=== PATIENT | female | born 1960 | race Caucasian/White ===

== ENCOUNTER 2020-01-15 09:08 | Outpatient (CLI) | payer MEDICARE, SELFPAY ==
--- NOTE | 2020-01-15 09:16 | XR_ITS ---
WS: [id number] PROCEDURE: XR chest 2V* [id number] CLINICAL INFORMATION: BRONCHITIS ACUTE, ALLERGIC RHINITIS COMPARISON: 2017 FINDINGS: Heart: Normal cardiac silhouette. Lungs: Moderate chronic emphysematous changes. No acute pulmonary infiltrates. Bones: Moderate thoracic kyphosis. Chronic anterior wedging mid thoracic spine. XR/XR chest 2V* [id number] IMPRESSION: Moderate chronic emphysematous changes. No acute chest findings.
== END 2020-01-15 09:09 | disposition home or self-care (01) ==
LOC: RADWPI 09:12
PROVIDERS: Family Provider Electrodiagnostic Medicine; PCP Electrodiagnostic Medicine; Visit Provider Electrodiagnostic Medicine
DX: J20.9 Acute bronchitis, unspecified (principal); J30.9 Allergic rhinitis, unspecified
CPT/HCPCS: 71046

== ENCOUNTER → 2022-02-17 10:25 | Outpatient (BNVA) | payer MEDICARE, SELFPAY | PROVIDERS: PCP Clinical Nurse Specialist Adult Health; Visit Provider Clinical Nurse Specialist Adult Health | DX: E53.8 Deficiency of other specified B group vitamins (principal); R03.0 Elevated blood-pressure reading, without diagnosis of hypertension; E78.5 Hyperlipidemia, unspecified; E55.9 Vitamin D deficiency, unspecified; Z12.39 Encounter for other screening for malignant neoplasm of breast | CPT/HCPCS: 80053; 80061; 82306; 82607; 84443; 85025; 85651; 86140; 86431 ==

== ENCOUNTER 2022-03-07 09:37 | Outpatient (CLI) | payer MEDICARE, SELFPAY ==
--- NOTE | 2022-03-07 09:56 | MM_ITS ---
WS: [email or web address] VIEWS: MLO and CC views both breasts. 3D digital tomosynthesis is also included in this exam. Comparison made with prior exam of 09/13/2007 and 08/08/2013. Findings: New 6 mm nodule noted at about the 7:00 position in the right breast at posterior depth. No sap mobility architect ural distortion or suspicious calcification. No new findings in the left breast. Scattered fibroglan dular densities. Compression spot views of the right breast and 90 degree lateral view as well as reg ional ultrasound evaluation would be indicated for further workup. MM/[place] [id number] Impression: BI-RADS: 0-Incomplete: Need additional imaging evaluation FOLLOW-UP: See Report This mammogram was also analyzed by the Computer Aided Detection System R2 Imag e Cyber Forensic Specialist.
== END 2022-03-07 09:38 | disposition home or self-care (01) ==
LOC: RAD 09:37
PROVIDERS: PCP Clinical Nurse Specialist Adult Health; Visit Provider Clinical Nurse Specialist Adult Health
DX: Z12.31 Encounter for screening mammogram for malignant neoplasm of breast (principal)
CPT/HCPCS: 77063; 77067

== ENCOUNTER 2022-03-10 12:51 | Outpatient (CLI) | payer MEDICARE, SELFPAY ==
--- NOTE | 2022-03-10 13:02 | US_ITS ---
WS: [email or web address] Exam: US breast RT limited* [id number] Date/Time of Exam: 03/10/2022 1:44 PM Reason For Exam: ABNORMAL MAMMOGRAM Regional ultrasound of the right breast is performed. A hypoechoic lobulated solid nodule is noted at the 6:00 position and measures approximately 6 x 5.3 x 4.6 mm. There were no other discrete solid no dules or masses in this region. No cysts were seen. Recommendations: Biopsy. US/US breast RT limited* [id number] IMPRESSION: 1. 6 x 5.3 x 4.6 mm lobulated hypoechoic solid nodule at the 6:00 position in t he right breast. This likely represents the nodular density described on recent mammography. BI-RADS Category 4.
--- NOTE | 2022-03-10 13:02 | MM_ITS ---
WS: [email or web address] VIEWS: Compression spot CC and MLO views of the right breast were obtained as well as a 90 degree lat eral view of the right breast. 3D digital tomosynthesis is also included in this exam. Comparison made with prior exam of 03/07/2022. Findings: Previously noted 6 mm nodule at the 7:00 position in the right breast persists on the compression spo t images. Scattered fibroglandular densities in the right breast. Regional ultrasound of the right b reast is indicated for further workup. MM/[place] [id number] Impression: BI-RADS: 0-Incomplete: Need additional imaging evaluation FOLLOW-UP: See Report This mammogram was also analyzed by the Computer Aided Detection System R2 Imag e Ballast Cleaning Operator.
== END 2022-03-10 12:52 | disposition home or self-care (01) ==
PROVIDERS: PCP Clinical Nurse Specialist Adult Health; Visit Provider Clinical Nurse Specialist Adult Health
DX: R92.8 Other abnormal and inconclusive findings on diagnostic imaging of breast (principal)
CPT/HCPCS: 76642; 77061

== ENCOUNTER 2022-04-08 12:08 | Outpatient (CLI) | payer MEDICARE, SELFPAY ==
--- NOTE | 2022-04-08 12:17 | US_ITS ---
WS: [email or web address] ULTRASOUND-GUIDED RIGHT BREAST BIOPSY HISTORY: Indeterminate nodule by ultrasound and mammography. COMPARISON: 03/10/2022 and 03/07/2022 Procedure, risks and complications are explained to the patient. Medications are reviewed. Consent is obtained. The mass in the RIGHT breast is localized with ultrasound. Mass localizes to 6:00. Skin is cleansed w ith ChloraPrep and anesthetized with 1% buffered lidocaine. Small dermatome is made. Under sterile co nditions mass is biopsied with a 14-gauge Achieve needle. Multiple core biopsies are performed. Mater ial placed in formalin and sent to pathology for review. No complications encountered. Breast tissue marker (Bard ultrasound enhanced ribbon): Single. Patient left the radiology suite with no complications. Patient is instructed to return to [facility] or [facility] with any concerns. US/[place] [id number] IMPRESSION: 1. Uncomplicated core needle biopsy RIGHT breast mass at 6:00 PATHOLOGY: Ductal carcinoma in situ, papillary variant. RECOMMENDATION: Follow-up with surgery. Pathologist recommended surgical excisi on if this is a localized mass. There is a localized mass. Recommend wire local ization and excision.
[2022-04-15 13:29] LABS: Breast Profile ER,PR,HER2,Ki-6 See Report
== END 2022-04-08 12:09 | disposition home or self-care (01) ==
LOC: RAD 12:09
PROVIDERS: PCP Family Medicine; Visit Provider Family Medicine
DX: D05.11 Intraductal carcinoma in situ of right breast (principal); R92.8 Other abnormal and inconclusive findings on diagnostic imaging of breast
CPT/HCPCS: 19083; 88305; 88361; 88374

== ENCOUNTER 2022-05-05 07:24 | Day surgery (SDC) | payer MEDICARE, SELFPAY ==
[2022-05-04 14:35] VITALS: BMI 42.9
[2022-05-05] VITALS (8 sets, daily range): BP systolic 149–177; BP diastolic 88–124; PULSE 68–85; RESP 14–18; TEMP 36.1–36.6; O2SAT 97–99
--- NOTE | 2022-05-05 | US_ITS ---
WS: [email or web address] ULTRASOUND BREAST RIGHT NEEDLE LOCALIZATION CLINICAL INFORMATION: lumpetomy surgery FINDINGS: The procedure including risks, benefits, and complications were discussed with the patient who agreed to proceed. Using sterile technique patient was prepped and draped in the usual sterile fashion. Aft er 1% lidocaine utilizing real-time ultrasound guidance 7 cm Kopan's needle advanced through the RIGH T breast lesion at the 6 o'clock position. No immediate complications Surgical specimen demonstrates gross total resection with intact wire and biopsy clip. This is confir med with mammography and ultrasound. Follow-up with oncology and breast surgery as directed. US/US breast surgical specimen IMPRESSION: 1. Uncomplicated ultrasound-guided RIGHT breast needle localization. 2. Surgical specimen demonstrates gross total resection with intact wire and b iopsy clip. This is confirmed with mammography and ultrasound. 3. Recommend 6 month follow-up RIGHT breast diagnostic mammography and ultraso und. 4. Follow-up with oncology and breast surgery as directed. BI-RADS: 6-Known Biopsy-Proven Malignancy FOLLOW UP: 6 Month Follow-up
--- NOTE | 2022-05-05 07:43 | US_ITS ---
WS: [email or web address] ULTRASOUND BREAST RIGHT NEEDLE LOCALIZATION CLINICAL INFORMATION: lumpetomy surgery FINDINGS: The procedure including risks, benefits, and complications were discussed with the patient who agreed to proceed. Using sterile technique patient was prepped and draped in the usual sterile fashion. Aft er 1% lidocaine utilizing real-time ultrasound guidance 7 cm Kopan's needle advanced through the RIGH T breast lesion at the 6 o'clock position. No immediate complications Surgical specimen demonstrates gross total resection with intact wire and biopsy clip. This is confir med with mammography and ultrasound. Follow-up with oncology and breast surgery as directed. US/[place] [id number] IMPRESSION: 1. Uncomplicated ultrasound-guided RIGHT breast needle localization. 2. Surgical specimen demonstrates gross total resection with intact wire and b iopsy clip. This is confirmed with mammography and ultrasound. 3. Recommend 6 month follow-up RIGHT breast diagnostic mammography and ultraso und. 4. Follow-up with oncology and breast surgery as directed. BI-RADS: 6-Known Biopsy-Proven Malignancy FOLLOW UP: 6 Month Follow-up
[2022-05-05] MEDS: sodium chloride 0.9% 1,000 ML 30 ML IV (08:22)
--- NOTE | 2022-05-05 08:25 | PC.NURSE ---
patient taken to ultra sound at 0820 for needle localization.
--- NOTE | 2022-05-05 08:55 | PC.NURSE ---
patient back from [facility] dr[facility] ordonez to see patient.
--- NOTE | 2022-05-05 09:07 | ANES.PREANE2 ---
Pre-Anesthetic Assessment Height/Weight: Height 1.63 m Weight 113.398 kg Temp Pulse Resp BP Pulse Ox O2 Del Method 97.9 F 85 18 166/104 97 05/05/22 07:56 05/05/22 07:56 05/05/22 07:56 05/05/22 08:00 05/05/22 07:56 05/05/22 07:56 Operation Date: 05/05/22 09:40 Proposed Procedures p Right Breast Lumpectomy following needle [id number] US@0800(Right) - Felix Leggett MD Familial anesthetic complications: none Was Beta Corazon taken within 24 hours: N/A Was Clonidine taken within 24 hours: N/A Last intake: Intake Last Liquid Date 05/04/22 Last Liquid Time 23:00 Last Solid Date 05/04/22 Last Solid Time 18:00 Social No alcohol and No tobacco Exam alert, oriented x 3, clear to auscultation bilaterally and regular rate & rhythm Airway Submandibular: within normal limits Cervical ROM: within normal limits Mallampati: Class II Dentition: full CV/HEM Anemia Metabolic Morbid Obesity [facility] Rheumatoid Arthritis Anesthetic Plan ASA status: 2 Anesthesia: Choice Medications/Allergies Home Medications Medication Instructions Recorded Confirmed Last Taken Type albuterol sulfate 90 mcg/actuation 2 puff inhalation Q6H PRN 02/17/22 05/05/22 04/19/22 History aerosol inhaler shortness of breath or wheezing cholecalciferol (vitamin D3) 125 5,000 unit PO DAILY #30 caps 02/18/22 05/05/22 05/04/22 06:00 Rx mcg (5,000 unit) capsule Allergies Allergy/AdvReac Type Severity Reaction Status Date / Time ciprofloxacin [From Cipro] Allergy RASH Verified 05/05/22 07:49 Current Medications Generic Name Dose Route Start Last Admin Trade Name Freq PRN Reason Stop Dose Admin Sodium Chloride 1,000 mls @ 30 mls/hr 05/05/22 08:00 05/05/22 08:22 Sodium Chloride 0.9% IV 05/06/22 07:59 30 mls/hr .Q24H ELLEN Administration PFSH Anesthesia Medical History (Updated 04/16/22 @ 18:30 by Benson Figueroa MD) Elevated blood pressure reading without diagnosis of hypertension Generalized osteoarthritis Hx of compression fracture of spine Hyperlipidemia Morbid obesity Psoriasis Recurrent UTI (urinary tract infection) Rheumatoid arthritis Ulnar nerve abnormality Vitamin B12 deficiency Vitamin D deficiency disease Surgical History Hx of gastric bypass Hx of hysterectomy Family History Grandfather Cancer lung Father Cancer lung Social History Smoking and tobacco status: former smoker Alcohol intake: never Current occupational status: retired Data Anesthesia Cardiac Studies: No Data to Display
--- NOTE | 2022-05-05 09:09 | W.PM.OPSUD ---
Surgery/Procedure H&P Update DATE OF PROCEDURE: May 05, 2022 DATE H&P PERFORMED: 04/26/22 H&P UPDATE INFORMATION: No changes to prior documentation PREOP DIAGNOSIS: Right breast DCIS. PLANNED PROCEDURE: Operation Date: 05/05/22 09:40 Proposed Procedures p Right Breast Lumpectomy following needle [id number],D05.11 US@0800(Right) - Felix Leggett MD
[2022-05-05] MEDS: ceFAZolin 2,000 MG in sodium chloride 0.9% (plus) 50 ML 100 MG IV (10:30)
--- NOTE | 2022-05-05 11:08 | MM_ITS ---
WS: [email or web address] ULTRASOUND BREAST RIGHT NEEDLE LOCALIZATION CLINICAL INFORMATION: lumpetomy surgery FINDINGS: The procedure including risks, benefits, and complications were discussed with the patient who agreed to proceed. Using sterile technique patient was prepped and draped in the usual sterile fashion. Aft er 1% lidocaine utilizing real-time ultrasound guidance 7 cm Kopan's needle advanced through the RIGH T breast lesion at the 6 o'clock position. No immediate complications Surgical specimen demonstrates gross total resection with intact wire and biopsy clip. This is confir med with mammography and ultrasound. Follow-up with oncology and breast surgery as directed. MM/MM surgical specimen RT IMPRESSION: 1. Uncomplicated ultrasound-guided RIGHT breast needle localization. 2. Surgical specimen demonstrates gross total resection with intact wire and b iopsy clip. This is confirmed with mammography and ultrasound. 3. Recommend 6 month follow-up RIGHT breast diagnostic mammography and ultraso und. 4. Follow-up with oncology and breast surgery as directed. BI-RADS: 6-Known Biopsy-Proven Malignancy FOLLOW UP: 6 Month Follow-up
--- NOTE | 2022-05-05 11:28 | PM.OP ---
Operative Report Date of procedure: May 05, 2022 Pre-op diagnosis: Preop Diagnosis Right breast DCIS. Post-op diagnosis: Same. Procedure done: Right breast lumpectomy following preoperative needle localization. Specimens removed/disposition: Right breast lumpectomy specimen including localization wire. Long suture anteriorly, short suture laterally. Surgeon: General Surgery Felix Leggett MD Anesthesia: MAC Estimated blood loss (mL): 2 Procedure: The patient was brought to the operating room and was placed in a supine position on the operating room table after undergoing localization of the right breast lesion in radiology preoperatively. A monitored anesthetic was induced. The right breast was prepped and draped in a sterile fashion, taking care not to disturb the localization wire. A combination of 1% lidocaine with 1 to 100,000 parts epinephrine and point to 5% bupivacaine was used for local anesthesia throughout the procedure. The wire entered the lower inner aspect of the right breast. The wire traveled laterally underneath the skin. An incision was made lateral to the insertion point of the wire and cautery was used to divide the breast tissue. The localization wire was brought into the incision and further dissection down the wire was carried out until the hub of the wire was identified. The wire and surrounding tissue were grasped with an Allis clamp and Metzenbaum scissors were then used to take the lump of tissue around the tip of the wire. The specimen was marked with a long suture anteriorly and a short suture laterally. It was sent to radiology and we received confirmation that the lesion and clip were within the specimen. The wound was irrigated with saline. The skin was reapproximated using a running subcuticular suture of 4-0 Vicryl. Benzoin and Steri-Strips were placed over the incision and a sterile bandage followed. The patient was taken to the recovery area in stable condition postoperatively.
--- NOTE | 2022-05-05 11:28 | SUR.PHASEI ---
1120 PT TO PACU 5 AWAKE ALERT HOB AT 45 DEGREES MONITOR SR WITH NO ECTOPY, IV TO LT WRIST #20 PATENT TO 500ML NS AT KVO RATE PER GRAVITY, RT BREAST DRESSING D/I ID BRACELET TO RT WRIST , PT ID'D WITH 2 IDENTIFIERS, BP ELEVATED ON ADMIT , WILL MONITOR. PT VERBALLY DENIES PAIN AND NAUSEA.
[2022-05-05] MEDS: HYDROcodone-acetaminophen 5-325 mg Tablet 1 TAB PO (12:05)
--- NOTE | 2022-05-05 13:23 | ANE.PACU2 ---
Inpatient post-anesthesia follow up: Airway intact: Yes Vital signs: Temperature 98 F Pulse Rate 68 Respiratory Rate 18 Blood Pressure 149/92 Pulse Oximetry 99 Oxygen Delivery Me thod Room Air Oxygen Flow Rate Fraction of Inspir ed Oxygen Hydration adequate: Yes Nausea and vomiting: No Pain level: 1 Mental status: Baseline
== END 2022-05-05 12:24 | disposition home or self-care (01) ==
PROVIDERS: PCP Family Medicine; Visit Provider Surgery
PROC: (CPT 19120; principal; 2022-05-05 09:30)
DX: N63.10 Unspecified lump in the right breast, unspecified quadrant (principal); E66.01 Morbid (severe) obesity due to excess calories; Z68.41 Body mass index [BMI] 40.0-44.9, adult; M06.9 Rheumatoid arthritis, unspecified; E78.5 Hyperlipidemia, unspecified; Z87.891 Personal history of nicotine dependence; Z98.84 Bariatric surgery status
CPT/HCPCS: 19301; 19285; 88307; C1889; J0690; J2704; J3010; J3490; J7030

== ENCOUNTER 2022-05-24 07:34 | Oncology outpatient (recurring) (ONCR) | payer MEDICARE, SELFPAY | END 2022-06-08 23:59 | disposition home or self-care (01) | PROVIDERS: PCP Family Medicine; Visit Provider Internal Medicine Hematology & Oncology | DX: D05.11 Intraductal carcinoma in situ of right breast (principal); Z17.0 Estrogen receptor positive status [ER+]; Z80.3 Family history of malignant neoplasm of breast; Z90.710 Acquired absence of both cervix and uterus; Z90.722 Acquired absence of ovaries, bilateral; Z79.818 Long term (current) use of other agents affecting estrogen receptors and estrogen levels; Z79.899 Other long term (current) drug therapy; Z87.891 Personal history of nicotine dependence | CPT/HCPCS: 99204 ==

== ENCOUNTER 2022-06-16 08:19 | Oncology outpatient (recurring) (ONCR) | payer MEDICARE, SELFPAY | END 2022-07-09 23:59 | disposition home or self-care (01) | PROVIDERS: PCP Family Medicine; Visit Provider Radiology Radiation Oncology | DX: D05.11 Intraductal carcinoma in situ of right breast (principal); Z17.0 Estrogen receptor positive status [ER+]; Z80.3 Family history of malignant neoplasm of breast; Z90.710 Acquired absence of both cervix and uterus; Z90.722 Acquired absence of ovaries, bilateral; Z79.818 Long term (current) use of other agents affecting estrogen receptors and estrogen levels; Z79.899 Other long term (current) drug therapy; Z87.891 Personal history of nicotine dependence | CPT/HCPCS: 90686; 90732; 99214 ==

== ENCOUNTER 2022-08-02 08:46 | Oncology outpatient (recurring) (ONCR) | payer MEDICARE, SELFPAY | END 2022-08-09 23:59 | disposition home or self-care (01) | PROVIDERS: PCP Family Medicine; Visit Provider Radiology Radiation Oncology | DX: D05.11 Intraductal carcinoma in situ of right breast (principal); Z17.0 Estrogen receptor positive status [ER+]; Z87.891 Personal history of nicotine dependence | CPT/HCPCS: 99213 ==

== ENCOUNTER → 2022-08-24 11:41 | Outpatient (BNVA) | payer MEDICARE, SELFPAY | PROVIDERS: PCP Family Medicine; Visit Provider Family Medicine | DX: Z98.84 Bariatric surgery status (principal); E78.5 Hyperlipidemia, unspecified; D05.11 Intraductal carcinoma in situ of right breast; E53.8 Deficiency of other specified B group vitamins; M06.9 Rheumatoid arthritis, unspecified; L40.9 Psoriasis, unspecified; R03.0 Elevated blood-pressure reading, without diagnosis of hypertension; E55.9 Vitamin D deficiency, unspecified; N39.0 Urinary tract infection, site not specified | CPT/HCPCS: 80053; 80061; 82306; 82607; 83540; 84134; 84425; 84443; 85025 ==

== ENCOUNTER 2022-09-02 08:05 | Outpatient (CLI) | payer MEDICARE, SELFPAY ==
[2022-09-02 09:40] LABS: Erythrocyte Sedimentation Rate 51 mm/hr (0-15)
[2022-09-02 09:43] LABS: C Reactive Protein 4.5 mg/L (0.0-4.9); Ferritin 12 ng/mL (15-150)
[2022-09-02 10:48] LABS: Iron 43 ug/dL (37-145); Percent Saturation 13.8 % (20-50); Total Iron Binding Capacity 311 mcg/dl; Unsaturated Iron Binding 268 ug/dL (112-347)
[2022-09-02 10:49] LABS: LAB Peripheral Smear Sent for Review
[2022-09-06 14:59] LABS: Zinc Level, Serum or Plasma 70 mcg/dL (60-130)
== END 2022-09-02 08:06 | disposition home or self-care (01) ==
PROVIDERS: PCP Family Medicine; Visit Provider Family Medicine
DX: D75.839 Thrombocytosis, unspecified (principal); Z98.84 Bariatric surgery status; Z79.899 Other long term (current) drug therapy
CPT/HCPCS: 36415; 80503; 82728; 83540; 83550; 84630; 85651; 86140

== ENCOUNTER 2022-09-14 08:45 | Oncology outpatient (recurring) (ONCR) | payer MEDICARE, SELFPAY ==
[2022-09-14 09:15] LABS: Basophils % 0.3 %; Eosinophils # 0.4 10^3/uL (0.0-0.8); Eosinophils % 3.8 %; Hematocrit 38.3 % (37.0-47.0); Hemoglobin 11.6 g/dL (11.5-15.3); Lymphocytes # 3.1 10^3/uL (0.8-4.8); Lymphocytes % 27.7 %; Mean Corpuscular HGB Conc 30.3 g/dL (30.0-36.0); Mean Corpuscular Volume 79.1 fl (81-99); Mean Platelet Volume 9.5 fL (7.4-10.4); Monocytes # 0.6 10^3/uL (0.2-0.9); Monocytes % 5.5 %; Neutrophils % 62.2 %; Nucleated Red Blood Cells % 0 %; Platelet Count 562 10^3/cmm (130-400); Red Blood Count 4.84 10^6/uL (4.1-5.3); Red Cell Distribution Width 16.4 % (12.1-15.1); White Blood Count 11.3 10^3/uL (4.0-10.0)
[2022-09-14 09:29] LABS: Albumin Level 3.5 g/dL (3.5-5.2); Alkaline Phosphatase 73 U/L (35-105); Chloride 102 mmol/L (98-107); Potassium 3.8 mmol/L (3.5-5.1); Sodium 135 mmol/L (136-145)
[2022-09-14 09:54] LABS: Alanine Aminotransferase 15 U/L (0-33); Anion Gap 15.8 (5-19); Aspartate Amino Transferase 14 U/L (0-32); Blood Urea Nitrogen 16 mg/dL (8-23); Carbon Dioxide 21 mmol/L (22-29); Globulin 2.9 g/dL (1.3-4.6); Glomerular Filtration Rate 72.7 mL/min (90-130); Glucose 129 mg/dL (65-115); Osmolality Calculated 283 mOsm/kg (285-295); Total Bilirubin 0.2 mg/dL (0.15-1.2); Total Protein 6.4 g/dL (6.6-8.7)
== END 2022-10-07 23:59 | disposition home or self-care (01) ==
PROVIDERS: Internal Medicine Hematology & Oncology; PCP Family Medicine; Visit Provider Radiology Radiation Oncology
DX: D05.11 Intraductal carcinoma in situ of right breast (principal); Z17.0 Estrogen receptor positive status [ER+]; D75.839 Thrombocytosis, unspecified; E53.8 Deficiency of other specified B group vitamins; R53.83 Other fatigue; R53.1 Weakness; Z98.84 Bariatric surgery status
CPT/HCPCS: 36415; 80053; 85025; 99214

== ENCOUNTER 2022-10-14 08:44 | Oncology outpatient (recurring) (ONCR) | payer MEDICARE, SELFPAY ==
[2022-10-14 09:35] LABS: Basophils # 0.1 10^3/uL (0.0-0.1); Basophils % 0.5 %; Eosinophils # 0.4 10^3/uL (0.0-0.8); Eosinophils % 3.3 %; Hemoglobin 11.4 g/dL (11.5-15.3); Lymphocytes # 2.4 10^3/uL (0.8-4.8); Lymphocytes % 22.5 %; Mean Platelet Volume 9.2 fL (7.4-10.4); Monocytes # 0.7 10^3/uL (0.2-0.9); Monocytes % 6.9 %; Neutrophils # 7.03 10^3/uL (1.8-7.7); Neutrophils % 66.2 %; Nucleated Red Blood Cells % 0 %; Platelet Count 540 10^3/cmm (130-400); Red Blood Count 4.75 10^6/uL (4.1-5.3); Red Cell Distribution Width 16.2 % (12.1-15.1); White Blood Count 10.6 10^3/uL (4.0-10.0)
[2022-10-14 09:51] LABS: Ferritin 12 ng/mL (15-150); Iron 36 ug/dL (37-145); Percent Saturation 12.2 % (20-50); Total Iron Binding Capacity 293 mcg/dl; Unsaturated Iron Binding 257 ug/dL (112-347)
[2022-10-14 10:07] LABS: Vitamin B12 468 pg/mL (232-1245)
== END 2022-11-06 23:59 | disposition home or self-care (01) ==
PROVIDERS: Internal Medicine Hematology & Oncology; PCP Family Medicine; Visit Provider Radiology Radiation Oncology
DX: D05.11 Intraductal carcinoma in situ of right breast (principal); Z17.0 Estrogen receptor positive status [ER+]; D50.9 Iron deficiency anemia, unspecified; R53.83 Other fatigue; R53.1 Weakness; Z98.84 Bariatric surgery status; Z80.3 Family history of malignant neoplasm of breast; Z90.710 Acquired absence of both cervix and uterus; Z90.722 Acquired absence of ovaries, bilateral; Z79.899 Other long term (current) drug therapy; Z87.891 Personal history of nicotine dependence; D72.829 Elevated white blood cell count, unspecified
CPT/HCPCS: 36415; 82607; 82728; 83540; 83550; 85025; 99214

== ENCOUNTER 2022-11-18 09:05 | Oncology outpatient (recurring) (ONCR) | payer MEDICARE, SELFPAY ==
[2022-11-18 09:34] LABS: Basophils # 0.1 10^3/uL (0.0-0.1); Basophils % 0.5 %; Eosinophils # 0.5 10^3/uL (0.0-0.8); Eosinophils % 5.1 %; Hematocrit 43.5 % (37.0-47.0); Hemoglobin 13.4 g/dL (11.5-15.3); Lymphocytes # 2.5 10^3/uL (0.8-4.8); Lymphocytes % 25.1 %; Mean Corpuscular HGB Conc 30.8 g/dL (30.0-36.0); Mean Corpuscular Hemoglobin 26.4 pg (28.0-34.0); Mean Corpuscular Volume 85.8 fl (81-99); Mean Platelet Volume 9.3 fL (7.4-10.4); Monocytes # 0.7 10^3/uL (0.2-0.9); Monocytes % 6.5 %; Neutrophils # 6.23 10^3/uL (1.8-7.7); Neutrophils % 62.2 %; Nucleated Red Blood Cells % 0 %; Platelet Count 468 10^3/cmm (130-400); Red Blood Count 5.07 10^6/uL (4.1-5.3); Red Cell Distribution Width 19.5 % (12.1-15.1)
[2022-11-18 10:00] LABS: Ferritin 43 ng/mL (15-150); Iron 116 ug/dL (37-145); Percent Saturation 48.5 % (20-50); Total Iron Binding Capacity 239 mcg/dl; Unsaturated Iron Binding 123 ug/dL (112-347)
== END 2022-12-07 23:59 | disposition home or self-care (01) ==
PROVIDERS: Internal Medicine Hematology & Oncology; PCP Family Medicine; Visit Provider Radiology Radiation Oncology
DX: Z08 Encounter for follow-up examination after completed treatment for malignant neoplasm (principal); Z85.3 Personal history of malignant neoplasm of breast; D50.9 Iron deficiency anemia, unspecified; R53.83 Other fatigue; R53.1 Weakness; Z98.84 Bariatric surgery status; Z80.3 Family history of malignant neoplasm of breast; Z90.710 Acquired absence of both cervix and uterus; Z90.722 Acquired absence of ovaries, bilateral; Z79.899 Other long term (current) drug therapy; Z87.891 Personal history of nicotine dependence; D72.829 Elevated white blood cell count, unspecified
CPT/HCPCS: 36415; 82728; 83540; 83550; 85025; 99214

== ENCOUNTER 2022-11-23 07:45 | Outpatient (CLI) | payer MEDICARE, SELFPAY ==
--- NOTE | 2022-11-23 07:54 | MM_ITS ---
WS: [email or web address] RIGHT 3D TOMOSYNTHESIS DIGITAL MAMMOGRAPHY WITH CAD CLINICAL INFORMATION: 6MFU POST BX HISTORY: Surgical lumpectomy COMPARISON: 2021 TECHNIQUE: 3 views of the right breast were obtained. FINDINGS: Scattered fibroglandular densities of the right breast. Previously described ovoid nodule has been re sected. Small amount of parenchymal scarring in this area. Ultrasound described below. ULTRASOUND BREAST RIGHT TECHNIQUE: Ultrasound right breast focused area of concern. CLINICAL INFORMATION: 6MFU POST BX FINDINGS: Ultrasound RIGHT breast 6:00 position 1 cm from the nipple. Tiny hypoechoic focus in the area of prior surgery near the upper margin measuring 4.3 x 4.5 x 2.7 mm . This is indeterminant and recurrence cannot be entirely excluded. Recommend ultrasound-guided biops y for more definitive evaluation. MM/[place] [id number] IMPRESSION: BI-RADS: 4-Suspicious Finding-Biopsy Should Be Considered FOLLOW UP: US Guided Biopsy Recommended
--- NOTE | 2022-11-23 08:13 | US_ITS ---
WS: [email or web address] RIGHT 3D TOMOSYNTHESIS DIGITAL MAMMOGRAPHY WITH CAD CLINICAL INFORMATION: 6MFU POST BX HISTORY: Surgical lumpectomy COMPARISON: 2021 TECHNIQUE: 3 views of the right breast were obtained. FINDINGS: Scattered fibroglandular densities of the right breast. Previously described ovoid nodule has been re sected. Small amount of parenchymal scarring in this area. Ultrasound described below. ULTRASOUND BREAST RIGHT TECHNIQUE: Ultrasound right breast focused area of concern. CLINICAL INFORMATION: 6MFU POST BX FINDINGS: Ultrasound RIGHT breast 6:00 position 1 cm from the nipple. Tiny hypoechoic focus in the area of prior surgery near the upper margin measuring 4.3 x 4.5 x 2.7 mm . This is indeterminant and recurrence cannot be entirely excluded. Recommend ultrasound-guided biops y for more definitive evaluation. US/US breast RT limited* [id number] IMPRESSION: BI-RADS: 4-Suspicious Finding-Biopsy Should Be Considered FOLLOW UP: US Guided Biopsy Recommended
== END 2022-11-23 07:46 | disposition home or self-care (01) ==
PROVIDERS: PCP Family Medicine; Visit Provider Family Medicine
DX: R92.8 Other abnormal and inconclusive findings on diagnostic imaging of breast (principal); Z98.890 Other specified postprocedural states
CPT/HCPCS: 76642; 77061; G0279

== ENCOUNTER 2022-12-02 12:17 | Outpatient (CLI) | payer MEDICARE, SELFPAY ==
--- NOTE | 2022-12-02 13:15 | US_ITS ---
WS: [id number] ULTRASOUND RIGHT BREAST HISTORY: birad 4 diag mammo/us; hx of breast cancer COMPARISON: 11/23/2022 TECHNIQUE: 2-D and Doppler. Patient presents for biopsy at the prior surgical site. The previously described very small nodule is not visualized today. There is no shadowing identified. No cystic or solid mass. Mammogram was revie wed and demonstrated no significant abnormality. US/US breast RT limited* [id number] IMPRESSION: BI-RADS: 3-Probably Benign FOLLOW-UP: 6 Month Follow-up Patient to return in 6 months for bilateral annual mammogram. Reevaluation of t he RIGHT breast postsurgical site can also be performed at this time. No suspicious area for biopsy today. This was explained in detail to the edi smith
== END 2022-12-02 12:18 | disposition home or self-care (01) ==
LOC: RAD 12:22
PROVIDERS: PCP Family Medicine; Visit Provider Family Medicine
DX: Z86.000 Personal history of in-situ neoplasm of breast (principal); R92.8 Other abnormal and inconclusive findings on diagnostic imaging of breast; Z98.890 Other specified postprocedural states
CPT/HCPCS: 76642

== ENCOUNTER 2022-12-30 13:54 | Emergency (ER) | payer MEDICARE, SELFPAY ==
[2022-12-30 13:58] VITALS: PULSE 91; RESP 16; TEMP 36.4; O2SAT 96; BMI 46.5
[2022-12-30 14:02] VITALS: BP 188/103; PULSE 83; RESP 18; O2SAT 96
[2022-12-30 14:32] VITALS: BP 170/129; PULSE 81; RESP 16; O2SAT 96
--- NOTE | 2022-12-30 14:36 | CT_ITS ---
WS: [email or web address] CTA HEAD AND NECK TECHNIQUE: Contrast enhanced CTA of the head and neck with coronal and sagittal reformatted images an d maximum intensity projection (MIP) images. NASCET criteria utilized. CLINICAL INFORMATION: left temporal artery pain, vision changes, hx of aneurysm COMPARISON: None. DLP: 1368.[address] scans at [facility] use at least one of these dose optimization techniques: automated e xposure control; mA and/or kV adjustment per patient size (includes targeted exams where dose is matc hed to clinical indication); or iterative reconstruction. FINDINGS: No evidence of intracranial hemorrhage or mass effect. Ventricular system and basal cistern s are patent.Intracranial vascular calcification. Mild small vessel changes. Mild parenchymal volume loss. Paranasal sinuses and mastoid air cells well aerated. Normal posterior nasopharynx. RIGHT: RIGHT common carotid artery is patent. Mild atheromatous plaque RIGHT carotid bulb extending i nto the ICA. No significant RIGHT ICA stenosis. RIGHT ICA is patent to the skull base. Tortuous RIGHT cervical ICA. LEFT: LEFT common carotid artery is patent. No significant LEFT ICA stenosis. LEFT ICA is patent to t he skull base. Tortuous LEFT cervical ICA. Codominant and patent vertebral arteries bilaterally. Basilar artery is patent. Tortuous and slightly aneurysmal basilar tip measuring 5.4 mm. Normal vascularity to the ROLL TESTER territory bilaterally. Both ICAs are patent at the skull base. Normal vascularity to the MELANIE and MCA territories bilaterally . No evidence of proximal flow limiting stenosis. Normal posterior nasopharynx. Normal parapharyngeal fat. Lung apices are well aerated. A few prominen t cervical lymph nodes likely reactive. CT/CT angio headneck* [id number] IMPRESSION: 1. No significant ICA stenosis bilaterally. Both ICAs are patent. Tortuous ICA s at the skull base 2. Tortuous slightly aneurysmal basilar tip. Normal vascularity to the ROLL TESTER ter ritory bilaterally. 3. Both vertebral arteries are patent. 4. No evidence of intracranial flow limiting stenosis. 5. No evidence of intracranial hemorrhage or mass effect. 6. Mild small vessel changes with mild parenchymal volume loss.
--- NOTE | 2022-12-30 14:51 | W.ED.NEUROSD ---
HPI - Neuro Symptoms/Deficit General: Chief Complaint: Neuro Symptoms/Deficit Stated Complaint: felt a pop' in head, sob, left arm pain Time Seen by Provider: 12/30/22 14:04 History of Present Illness: Patient presents to the ER for left-sided temporal head pain that radiated down her neck into her left arm. Patient also complained of blurry vision and nausea. The symptoms have resolved. This to symptoms started about 1230 today and lasted about 1 hour. Patient has never had the symptoms before. 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; s/p lumpectomy w/ clear margins Hx of compression fracture of spine Hyperlipidemia Iron deficiency anemia Morbid obesity Psoriasis Recurrent UTI (urinary tract infection) Rheumatoid arthritis Vitamin B12 deficiency Vitamin D deficiency disease Surgical History History of bilateral carpal tunnel release History of section History of decompression of ulnar nerve History of gastric bypass History of hysterectomy Family History Grandfather Cancer lung CAD (coronary artery disease) Dementia Father Cancer lung Lung disease Lung cancer Grandmother CAD (coronary artery disease) Sister Diabetes Stroke Family/Other Lung disease Uncles with black lung Other Anesthesia complication Hyperlipidemia Hypertension Denies family history of Clotting disorder Psychiatric illness Chronic kidney disease (CKD) Suicide Bleeding disorder Social History Smoking and tobacco status: former smoker Quit status (tobacco): has quit using tobacco Year quit tobacco: 2002 Alcohol intake: former Substance/Drug Use: never Household members: significant other Marital status: / Marital status details: engaged Number of children: 2 Number of grandchildren: 12 Current occupational status: retired Arianna/Sikh: Mandaeism Agree to transfusion: Yes Physical Exam Const: COMMON NORMALS: no acute distress, average body habitus, patient oriented x3, no limitations, healthy appearing, alert and well nourished HENMT: COMMON NORMALS: normocephalic, atraumatic, hearing grossly normal bilaterally, external ears normal, Normal external nose present and moist oral mucous membranes HEAD & SCALP: normocephalic and atraumatic NOSE: Normal external nose present EXTERNAL EAR: Yes external ears normal OTHER: Negative for temporal artery tenderness to palpation. Eye: COMMON NORMALS: Equal, round and reactive pupils present, EOMs intact bilaterally, conjunctivae normal and no scleral icterus CONJUNCTIVA: Yes conjunctivae normal PUPIL: Yes Equal, round and reactive pupils present Neck/C-Spine: COMMON NORMALS: full ROM, no lymphadenopathy, supple, no meningeal signs, no JVD and Thyroid normal THYROID: Thyroid normal Lymph: LYMPHATIC: no lymphadenopathy noted Chest: COMMONS NORMALS: normal inspection of the chest and normal palpation of entire chest wall Resp: COMMON NORMALS: normal respiratory effort, No retractions, No use of accessory muscles and clear to auscultation bilaterally AUSCULTATION: clear to auscultation bilaterally Cardio: COMMON NORMALS: no JVD, regular rate, regular rhythm, S1 normal heart sound present, S2 normal heart sound present, No gallops present (Cardio), No clicks present (Cardio), No murmurs present (Cardio) and No rub (Cardio) RATE: regular rate RHYTHM: regular rhythm HEART SOUNDS: S1 normal heart sound present and S2 normal heart sound present GI: COMMON NORMALS: Normal to inspection, nondistended, normoactive bowel sounds present, Soft to palpation, non-tender, No hepatosplenomegaly present and no masses PALPATION: Yes Soft to palpation and Yes No hepatosplenomegaly present Neuro: COMMON NORMALS: patient oriented x3 SENSORIUM/ORIENTATION: Yes alert MENINGEAL SIGNS: Yes no meningeal signs Course Vital Signs: Vital signs: Vital Signs Temperature 97.5 F L 12/30/22 13:58 Pulse Rate 78 12/30/22 16:32 Respiratory Rate 18 12/30/22 16:32 Blood Pressure 181/99 12/30/22 16:32 Pulse Oximetry 96 12/30/22 16:32 Oxygen Delivery Me thod Room Air 12/30/22 14:02 MDM - Neuro Symptoms/Deficit Medical Decision Making Presents to the ER with complaints of pop and pain in her left temporal area that radiated down to her neck into her arm. Patient said the pain went away however she is very anxious. Patient has no other focal neurologic findings at this time. Lab work was obtained as well as a CTA of the head and neck all of which were essentially benign. Patient will be discharged with head pain/temporal pain and will be instructed to follow-up with her PCP in the next week as needed. Patient's blood pressures continuously stayed elevated in the 180s to 160s the patient states she has whitecoat hypertension. Differential Diagnosis Unlikely carpal tunnel syndrome, convulsions, subarachnoid hemorrhage, peripheral neuropathy, cerebrovascular accident, multiple sclerosis or transient cerebral ischemia Medical Records I reviewed the patient's medical records. Lab Data I reviewed the patient's lab results. 12/30/22 14:46 12/30/22 14:46 Radiology Impressions Head/Neck CTA 12/30/22 14:36 IMPRESSION: 1. No significant ICA stenosis bilaterally. Both ICAs are patent. Tortuous ICAs at the skull base 2. Tortuous slightly aneurysmal basilar tip. Normal vascularity to the PHOTO OPTICS TECHNICIAN territory bilaterally. 3. Both vertebral arteries are patent. 4. No evidence of intracranial flow limiting stenosis. 5. No evidence of intracranial hemorrhage or mass effect. 6. Mild small vessel changes with mild parenchymal volume loss. Laboratory Results WBC 9.7 10^3/uL (4.0-10.0) 12/30/22 14:46 RBC 5.12 10^6/uL (4.1-5.3) 12/30/22 14:46 Hgb 14.1 g/dL (11.5-15.3) 12/30/22 14:46 Hct 44.2 % (37.0-47.0) 12/30/22 14:46 MCV 86.3 fl (81-99) 12/30/22 14:46 MCH 27.5 pg (28.0-34.0) L 12/30/22 14:46 MCHC 31.9 g/dL (30.0-36.0) 12/30/22 14:46 RDW 16.4 % (12.1-15.1) H 12/30/22 14:46 Plt Count 426 10^3/cmm (130-400) H 12/30/22 14:46 MPV 9.3 fL (7.4-10.4) 12/30/22 14:46 Neut % (Auto) 64.2 % 12/30/22 14:46 Lymph % (Auto) 24.0 % 12/30/22 14:46 [place] % (Auto) 7.2 % 12/30/22 14:46 Eos % (Auto) 3.8 % 12/30/22 14:46 Baso % (Auto) 0.3 % 12/30/22 14:46 Neut # (Auto) 6.24 10^3/uL (1.8-7.7) 12/30/22 14:46 Lymph # (Auto) 2.3 10^3/uL (0.8-4.8) 12/30/22 14:46 [place] # (Auto) 0.7 10^3/uL (0.2-0.9) 12/30/22 14:46 Eos # (Auto) 0.4 10^3/uL (0.0-0.8) 12/30/22 14:46 Baso # (Auto) 0.0 10^3/uL (0.0-0.1) 12/30/22 14:46 Nucleated RBC % (auto) 0 % 12/30/22 14:46 Nucleated RBCs # 0.0 /100WBC 12/30/22 14:46 ESR 28 mm/hr (0-15) H 12/30/22 14:46 Sodium 137 mmol/L (136-145) 12/30/22 14:46 Potassium 4.4 mmol/L (3.5-5.1) 12/30/22 14:46 Chloride 103 mmol/L (98-107) 12/30/22 14:46 Carbon Dioxide 25 mmol/L (22-29) 12/30/22 14:46 Anion Gap 13.4 (5-19) 12/30/22 14:46 BUN 13 mg/dL (8-23) 12/30/22 14:46 Creatinine 0.7 mg/dL (0.5-0.9) 12/30/22 14:46 GFR Calculation 84.8 mL/min (90-130) L 12/30/22 14:46 Glucose 94 mg/dL (65-115) 12/30/22 14:46 Calculated Osmolality 284 mOsm/kg (285-295) L 12/30/22 14:46 Calcium 8.9 mg/dL (8.5-10.5) 12/30/22 14:46 Total Bilirubin 0.2 mg/dL (0.15-1.2) 12/30/22 14:46 AST 23 U/L (0-32) 12/30/22 14:46 ALT 21 U/L (0-33) 12/30/22 14:46 Alkaline Phosphatase 77 U/L (35-105) 12/30/22 14:46 C-Reactive Protein 3.7 mg/L (0.0-4.9) 12/30/22 14:46 Total Protein 6.5 g/dL (6.6-8.7) L 12/30/22 14:46 Albumin 3.4 g/dL (3.5-5.2) L 12/30/22 14:46 Globulin 3.1 g/dL (1.3-4.6) 12/30/22 14:46 Discharge Plan Discharge Patient Disposition: Home Clinical Impression: Temporal headache, Temporary high blood pressure, Elevated platelet count Condition: Stable Prescriptions: No Action ascorbate calcium (vitamin C) 500 mg tablet 500 mg PO DAILY epinephrine [EpiPen 2-Ezequiel] 0.3 mg/0.3 mL auto-injector 0.3 mg IM Q4H PRN (Reason: anaphylaxis) Qty: 2 0RF triamcinolone acetonide 0.1 % cream 1 applic topical BID Qty: 30 0RF cholecalciferol (vitamin D3) 1,250 mcg (50,000 unit) capsule 1,250 mcg PO .once a week Qty: 12 0RF ferrous sulfate 325 mg (65 mg iron) tablet 325 mg PO BID nystatin 100,000 unit/gram powder 1 applic topical BID Qty: 60 0RF ketoconazole 2 % cream 1 applic TOPICAL BID Discharge Orders: Discharge ED (Routine); Ordered 12/30/22 Ordered By: Daniel Londono Referrals: Laura Lazo MD [Primary Care Provider] - 1 week Patient Instructions: Headache, Hypertension (ED) Activity Restrictions/Additional Instructions: Your work-up to the ER has essentially been benign. Please keep a blood pressure log and take it to your family practice doctor at your next visit. Please follow-up with him within the next 1 week or return to the ER if symptoms worsen. Coding Level of Care Code ED Rug Underlay Machine Operator for Nya Cheng
[2022-12-30 14:53] LABS: Basophils % 0.3 %; Eosinophils # 0.4 10^3/uL (0.0-0.8); Eosinophils % 3.8 %; Hematocrit 44.2 % (37.0-47.0); Hemoglobin 14.1 g/dL (11.5-15.3); Lymphocytes # 2.3 10^3/uL (0.8-4.8); Mean Corpuscular HGB Conc 31.9 g/dL (30.0-36.0); Mean Corpuscular Hemoglobin 27.5 pg (28.0-34.0); Mean Corpuscular Volume 86.3 fl (81-99); Mean Platelet Volume 9.3 fL (7.4-10.4); Monocytes # 0.7 10^3/uL (0.2-0.9); Monocytes % 7.2 %; Neutrophils # 6.24 10^3/uL (1.8-7.7); Neutrophils % 64.2 %; Nucleated Red Blood Cells % 0 %; Platelet Count 426 10^3/cmm (130-400); Red Blood Count 5.12 10^6/uL (4.1-5.3); Red Cell Distribution Width 16.4 % (12.1-15.1); White Blood Count 9.7 10^3/uL (4.0-10.0)
[2022-12-30 14:58] LABS: Erythrocyte Sedimentation Rate 28 mm/hr (0-15)
[2022-12-30 15:02] VITALS: BP 216/115; PULSE 86; RESP 18; O2SAT 98
[2022-12-30 15:12] LABS: Alanine Aminotransferase 21 U/L (0-33); Albumin Level 3.4 g/dL (3.5-5.2); Alkaline Phosphatase 77 U/L (35-105); Anion Gap 13.4 (5-19); Aspartate Amino Transferase 23 U/L (0-32); Blood Urea Nitrogen 13 mg/dL (8-23); C Reactive Protein 3.7 mg/L (0.0-4.9); Calcium 8.9 mg/dL (8.5-10.5); Carbon Dioxide 25 mmol/L (22-29); Chloride 103 mmol/L (98-107); Globulin 3.1 g/dL (1.3-4.6); Glomerular Filtration Rate 84.8 mL/min (90-130); Glucose 94 mg/dL (65-115); Osmolality Calculated 284 mOsm/kg (285-295); Potassium 4.4 mmol/L (3.5-5.1); Sodium 137 mmol/L (136-145); Total Bilirubin 0.2 mg/dL (0.15-1.2); Total Protein 6.5 g/dL (6.6-8.7)
[2022-12-30] MEDS: iohexol 350 mg/mL 500 mL Btl (per mL) IV (15:36)
[2022-12-30 16:00] VITALS: BP 168/105; PULSE 80; RESP 18; O2SAT 97
[2022-12-30 16:32] VITALS: BP 181/99; PULSE 78; RESP 18; O2SAT 96
== END 2022-12-30 17:40 | disposition home or self-care (01) ==
PROVIDERS: Emergency Provider Emergency Medicine; PCP Family Medicine
DX: R51.9 Headache, unspecified (principal); R03.0 Elevated blood-pressure reading, without diagnosis of hypertension; D75.839 Thrombocytosis, unspecified
CPT/HCPCS: 36415; 70496; 70498; 80053; 85025; 85651; 86140; 99285; Q9967

== ENCOUNTER 2023-01-12 01:25 | Emergency (ER) | payer MEDICARE, SELFPAY ==
[2023-01-12 01:25] VITALS: BP 163/121; PULSE 88; RESP 22; TEMP 36.8; O2SAT 97; BMI 47.0
--- NOTE | 2023-01-12 01:29 | W.ED.ABDPA2 ---
HPI - Abdominal Pain General: Chief Complaint: Abdominal Pain Stated Complaint: ABD PAIN Time Seen by Provider: 01/12/23 01:28 History of Present Illness: Ms Marx is a 62-year-old lady with history of gastric bypass presenting to the emergency department for abdominal pain. She reports symptoms woke her up from sleep. There is some possible blood in vomit which is small volume and epigastric pain which radiates to the chest. Moderate in intensity. Persistent in course. No other specific changes in health, exacerbating, or alleviating factors identified. 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; s/p lumpectomy w/ clear margins Hx of compression fracture of spine Hyperlipidemia Iron deficiency anemia Morbid obesity Psoriasis Recurrent UTI (urinary tract infection) Rheumatoid arthritis Vitamin B12 deficiency Vitamin D deficiency disease Surgical History History of bilateral carpal tunnel release History of section History of decompression of ulnar nerve History of gastric bypass History of hysterectomy Family History Grandfather Cancer lung CAD (coronary artery disease) Dementia Father Cancer lung Lung disease Lung cancer Grandmother CAD (coronary artery disease) Sister Diabetes Stroke Family/Other Lung disease Uncles with black lung Other Anesthesia complication Hyperlipidemia Hypertension Denies family history of Clotting disorder Psychiatric illness Chronic kidney disease (CKD) Suicide Bleeding disorder Social History Smoking and tobacco status: former smoker Quit status (tobacco): has quit using tobacco Year quit tobacco: 2002 Alcohol intake: former Substance/Drug Use: never Household members: significant other Marital status: / Marital status details: engaged Number of children: 2 Number of grandchildren: 12 Current occupational status: retired Arianna/Mandaen: Mandaeism Agree to transfusion: Yes Physical Exam Const: COMMON NORMALS: alert GENERAL APPEARANCE: cooperative and well developed HENMT: COMMON NORMALS: normocephalic and atraumatic HEAD & SCALP: normocephalic and atraumatic THROAT: posterior oropharynx normal Eye: COMMON NORMALS: conjunctivae normal CONJUNCTIVA: Yes conjunctivae normal SCLERA: sclerae normal Neck/C-Spine: COMMON NORMALS: supple GENERAL: Yes trachea midline Resp: COMMON NORMALS: clear to auscultation bilaterally EFFORT & INSPECTION: Yes able to speak in complete sentences AUSCULTATION: clear to auscultation bilaterally Cardio: COMMON NORMALS: regular rate and regular rhythm RATE: regular rate RHYTHM: regular rhythm GI: COMMON NORMALS: Soft to palpation PALPATION: Yes Soft to palpation, Yes Tenderness to palpation present (GI), No Guarding due to palpation present (GI) and No Rigid due to palpation Extremity: GENERAL: Yes normal exam except as noted and No edema Neuro: COMMON NORMALS: moves all extremities SENSORIUM/ORIENTATION: Yes alert and No Orientation impaired Psych: COMMON NORMALS: mental status grossly normal and Normal thought process present THOUGHT PROCESS: Normal thought process present Course Vital Signs: Vital signs: Vital Signs Temperature 98.2 F 01/12/23 01:25 Pulse Rate 87 01/12/23 04:29 Respiratory Rate 19 H 01/12/23 04:29 Blood Pressure 142/103 01/12/23 04:29 Pulse Oximetry 97 01/12/23 04:29 Oxygen Delivery Me thod Room Air 01/12/23 01:25 MDM - Abdominal Pain Medical Decision Making 62-year-old lady presenting with abdominal pain with radiation of the chest associated with possible hematemesis. Exam as above. Nontoxic. Abdominal tenderness without evidence of acute surgical abdomen. EKG demonstrates sinus rhythm with left axis deviation, nonspecific ST segment abnormalities, normal intervals. No STEMI. Labs with minimal leukocytosis, normal hemoglobin and platelet count is similar to prior. Metabolic panel with perhaps mild dehydration. CT imaging demonstrates no evidence of active hemorrhage. Incidental findings discussed with patient. Treated with antiemetic, PPI, analgesia and feels improved. Somewhat unclear etiology of symptoms however given clinical history and absence of recurrence in the emergency department as well as ED evaluation patient is comfortable with outpatient follow-up. I will initiate PPI and Carafate. Possible gastritis/esophagitis picture. The results of ED evaluation were discussed with the patient including prescriptions and/or symptomatic cares (if applicable) including appropriate and responsible use, followup plan, and return precautions. The patient verbalized understanding and felt safe for discharge. Medical Records I reviewed the patient's medical records. Lab Data I reviewed the patient's lab results. 01/12/23 01:40 01/12/23 01:40 Labs/Radiology: Radiology Impressions Chest/Abdomen/Pelvis CTA 01/12/23 02:28 IMPRESSION: 1. There are no acute chest findings. 2. There is no evidence for pulmonary emboli. 3. There is no evidence for aneurysmal dilatation, obstruction, stenoses dissection or extravasation of the visualized arteries of the chest, abdomen and pelvis. 4. Small bilateral renal cysts, the largest seen on the left measuring 9.1 mm. An intermediate density cystic mass seen on the lower pole of the left kidney measuring 9.7 mm. This likely represents a benign hemorrhagic cyst. No further workup needed. Laboratory Results WBC 11.9 10^3/uL (4.0-10.0) H 01/12/23 01:40 RBC 5.07 10^6/uL (4.1-5.3) 01/12/23 01:40 Hgb 14.3 g/dL (11.5-15.3) 01/12/23 01:40 Hct 42.9 % (37.0-47.0) 01/12/23 01:40 MCV 84.6 fl (81-99) 01/12/23 01:40 MCH 28.2 pg (28.0-34.0) 01/12/23 01:40 MCHC 33.3 g/dL (30.0-36.0) 01/12/23 01:40 RDW 15.9 % (12.1-15.1) H 01/12/23 01:40 Plt Count 450 10^3/cmm (130-400) H 01/12/23 01:40 MPV 9.7 fL (7.4-10.4) 01/12/23 01:40 Neut % (Auto) 67.0 % 01/12/23 01:40 Lymph % (Auto) 23.0 % 01/12/23 01:40 [place] % (Auto) 6.8 % 01/12/23 01:40 Eos % (Auto) 2.3 % 01/12/23 01:40 Baso % (Auto) 0.5 % 01/12/23 01:40 Neut # (Auto) 7.99 10^3/uL (1.8-7.7) H 01/12/23 01:40 Lymph # (Auto) 2.7 10^3/uL (0.8-4.8) 01/12/23 01:40 [place] # (Auto) 0.8 10^3/uL (0.2-0.9) 01/12/23 01:40 Eos # (Auto) 0.3 10^3/uL (0.0-0.8) 01/12/23 01:40 Baso # (Auto) 0.1 10^3/uL (0.0-0.1) 01/12/23 01:40 Nucleated RBC % (auto) 0 % 01/12/23 01:40 Nucleated RBCs # 0.0 /100WBC 01/12/23 01:40 PT 13.30 SECONDS (12.1-14.9) 01/12/23 01:40 INR 0.99 (0.8-1.2) 01/12/23 01:40 APTT 25.5 SECONDS (23.9-36.7) 01/12/23 01:40 Sodium 137 mmol/L (136-145) 01/12/23 01:40 Potassium 4.2 mmol/L (3.5-5.1) 01/12/23 01:40 Chloride 104 mmol/L (98-107) 01/12/23 01:40 Carbon Dioxide 19 mmol/L (22-29) L 01/12/23 01:40 Anion Gap 18.2 (5-19) 01/12/23 01:40 BUN 17 mg/dL (8-23) 01/12/23 01:40 Creatinine 0.9 mg/dL (0.5-0.9) 01/12/23 01:40 GFR Calculation 63.4 mL/min (90-130) L 01/12/23 01:40 Glucose 130 mg/dL (65-115) H 01/12/23 01:40 Calculated Osmolality 287 mOsm/kg (285-295) 01/12/23 01:40 Lactic Acid 2.0 mmol/L (0.5-2.2) 01/12/23 01:40 Calcium 8.8 mg/dL (8.5-10.5) 01/12/23 01:40 Total Bilirubin 0.3 mg/dL (0.15-1.2) 01/12/23 01:40 AST 21 U/L (0-32) 01/12/23 01:40 ALT 22 U/L (0-33) 01/12/23 01:40 Alkaline Phosphatase 73 U/L (35-105) 01/12/23 01:40 Total Protein 6.6 g/dL (6.6-8.7) 01/12/23 01:40 Albumin 3.5 g/dL (3.5-5.2) 01/12/23 01:40 Globulin 3.1 g/dL (1.3-4.6) 01/12/23 01:40 Lipase 33 U/L (13-60) 01/12/23 01:40 Blood Type O Positive 01/12/23 02:00 Rho(D) Type Positive 01/12/23 02:00 Antibody Screen Negative 01/12/23 02:00 Discharge Plan Discharge Patient Disposition: Home Clinical Impression: Abdominal pain, Hematemesis of fresh blood Condition: Stable Prescriptions: New ondansetron 4 mg tablet,disintegrating 4 mg PO Q8H PRN (Reason: nausea and vomiting) Qty: 15 0RF Carafate 1 gram tablet 1 g PO TID Qty: 30 0RF No Action ascorbate calcium (vitamin C) 500 mg tablet 500 mg PO DAILY epinephrine [EpiPen 2-Ezequiel] 0.3 mg/0.3 mL auto-injector 0.3 mg IM Q4H PRN (Reason: anaphylaxis) Qty: 2 0RF triamcinolone acetonide 0.1 % cream 1 applic topical BID Qty: 30 0RF cholecalciferol (vitamin D3) 1,250 mcg (50,000 unit) capsule 1,250 mcg PO .once a week Qty: 12 0RF ferrous sulfate 325 mg (65 mg iron) tablet 325 mg PO BID nystatin 100,000 unit/gram powder 1 applic topical BID Qty: 60 0RF ketoconazole 2 % cream 1 applic TOPICAL BID Discharge Orders: Discharge ED (Routine); Ordered 01/12/23 Ordered By: Zbigniew Talbert Referrals: Laura Lazo MD [Primary Care Provider] - Discharge Diet: Advance as tolerated and Clear Liquid Discharge Activity: Increase activity as tolerated Patient Instructions: Diet for Stomach Ulcers and Gastritis (ED), Abdominal Pain (ED), Hematemesis (ED), Opioid Safety Activity Restrictions/Additional Instructions: Thank you for visiting the emergency department. You were seen and evaluated for abdominal pain and vomiting blood. The exact cause of your symptoms is unclear. No active bleeding was demonstrated on CT imaging. The most likely cause of your symptoms is ulcers or irritation of the distal esophagus/stomach. I recommend clear liquid diet and advancing as tolerated with bland food. I will prescribe antacid and other medications including antinausea medication. I will message case management for follow-up with general surgery for consideration of endoscopy. Please also follow-up with your primary care provider. Return for uncontrolled symptoms or anything else that you are concerned about and feel needs emergency department evaluation. Coding Level of Care Code ED Special Education Preschool Teacher for Nya Cheng
[2023-01-12 01:30] VITALS: BP 184/107; PULSE 84; RESP 22; O2SAT 98
[2023-01-12 02:00] VITALS: BP 143/91; PULSE 81; RESP 18; O2SAT 96
[2023-01-12 02:02] LABS: Basophils # 0.1 10^3/uL (0.0-0.1); Basophils % 0.5 %; Eosinophils # 0.3 10^3/uL (0.0-0.8); Eosinophils % 2.3 %; Hematocrit 42.9 % (37.0-47.0); Hemoglobin 14.3 g/dL (11.5-15.3); Lymphocytes # 2.7 10^3/uL (0.8-4.8); Mean Corpuscular HGB Conc 33.3 g/dL (30.0-36.0); Mean Corpuscular Hemoglobin 28.2 pg (28.0-34.0); Mean Corpuscular Volume 84.6 fl (81-99); Mean Platelet Volume 9.7 fL (7.4-10.4); Monocytes # 0.8 10^3/uL (0.2-0.9); Monocytes % 6.8 %; Neutrophils # 7.99 10^3/uL (1.8-7.7); Nucleated Red Blood Cells % 0 %; Platelet Count 450 10^3/cmm (130-400); Red Blood Count 5.07 10^6/uL (4.1-5.3); Red Cell Distribution Width 15.9 % (12.1-15.1); White Blood Count 11.9 10^3/uL (4.0-10.0)
[2023-01-12] MEDS: pantoprazole 40 mg SDV 80 MG IVP (02:09)
[2023-01-12] MEDS: ondansetron 2 mg/ML SDV 2 mL 4 MG IVP (02:09)
[2023-01-12 02:12] LABS: INR 0.99 (0.8-1.2)
[2023-01-12 02:13] LABS: Partial Thromboplastin Time 25.5 SECONDS (23.9-36.7)
[2023-01-12 02:17] LABS: Alanine Aminotransferase 22 U/L (0-33); Albumin Level 3.5 g/dL (3.5-5.2); Alkaline Phosphatase 73 U/L (35-105); Aspartate Amino Transferase 21 U/L (0-32); Blood Urea Nitrogen 17 mg/dL (8-23); Calcium 8.8 mg/dL (8.5-10.5); Carbon Dioxide 19 mmol/L (22-29); Chloride 104 mmol/L (98-107); Globulin 3.1 g/dL (1.3-4.6); Glomerular Filtration Rate 63.4 mL/min (90-130); Glucose 130 mg/dL (65-115); Lipase 33 U/L (13-60); Osmolality Calculated 287 mOsm/kg (285-295); Sodium 137 mmol/L (136-145); Total Bilirubin 0.3 mg/dL (0.15-1.2); Total Protein 6.6 g/dL (6.6-8.7)
[2023-01-12 02:23] LABS: Anion Gap 18.2 (5-19); Potassium 4.2 mmol/L (3.5-5.1)
--- NOTE | 2023-01-12 02:28 | CTR_ITS ---
PROCEDURE INFORMATION: Exam: CTA Abdomen and Pelvis With Contrast Exam date and time: 01/12/2023 2:39 AM Age: 62 years old Clinical indication: Abdominal pain; Epigastric; Prior surgery; Surgery date: 6+ months; Surgery type: Gastric sleeve; Additional info: Abd pain, hematemesis, history of gastric sleeve and ulcers TECHNIQUE: Imaging protocol: Computed tomographic angiography of the abdomen and pelvis with contrast. Exam focused on the arteries. 3D rendering (Not supervised by radiologist): MIP and/or 3D reconstructed images were created by the technologist. Radiation optimization: All CT scans at this facility use at least one of these dose optimization techniques: automated exposure control; mA and/or kV adjustment per patient size (includes targeted exams where dose is matched to clinical indication); or iterative reconstruction. Contrast material: OMNI 350; Contrast volume: 100 ml; Contrast route: INTRAVENOUS (IV); REPORTING DATA: Count of CT and Cardiac NM exams in prior 12 months: This patient has received [address] and 0 known cardiac nuclear medicine studies in the 12 months prior to the current study. COMPARISON: CT abdomen pelvis wo/w [id number] 04/19/2016 2:50 PM RADIATION DOSE METRICS: Total DLP (mGy-cm): 2068.89 FINDINGS: Lungs: Some strandy opacities are seen adjacent to the major fissure on left compatible with atelectasis. Coronary arteries: Mild coronary artery calcifications are seen. Aorta: No aortic aneurysm. No aortic dissection. Celiac trunk and mesenteric arteries: No occlusion or significant stenosis. Renal arteries: No occlusion or significant stenosis. Right iliac arteries: No occlusion or significant stenosis. Left iliac arteries: No occlusion or significant stenosis. Liver: No mass. Gallbladder and bile ducts: Unremarkable. No calcified stones. No ductal dilation. Pancreas: Unremarkable. No mass. No ductal dilation. Spleen: Unremarkable. No splenomegaly. Adrenal glands: Unremarkable. No mass. Kidneys and ureters: There are bilateral hypoattenuation cystic lesions seen within the kidneys, the largest simple appearing cyst is seen in the left kidney measuring 9.1 mm. There is an intermediate density 9.7 mm cyst seen on the lower pole of the left kidney likely representing a small hemorrhagic cyst. Stomach and bowel: Status post gastric sleeve procedure. Appendix: No evidence of appendicitis. Intraperitoneal space: Unremarkable. No free air. No significant fluid collection. Lymph nodes: Unremarkable. No enlarged lymph nodes. Urinary bladder: Unremarkable. No mass. Reproductive: Unremarkable as visualized. Bones/joints: No acute fracture. Soft tissues: Unremarkable. CT/CT yakov castillo [id number] IMPRESSION: 1. There are no acute chest findings. 2. There is no evidence for pulmonary emboli. 3. There is no evidence for aneurysmal dilatation, obstruction, stenoses dissection or extravasation of the visualized arteries of the chest, abdomen and pelvis. 4. Small bilateral renal cysts, the largest seen on the left measuring 9.1 mm. An intermediate density cystic mass seen on the lower pole of the left kidney measuring 9.7 mm. This likely represents a benign hemorrhagic cyst. No further workup needed.
[2023-01-12] MEDS: iohexol 350 mg/mL 500 mL Btl (per mL) IV (02:35)
[2023-01-12 03:00] VITALS: BP 166/81; PULSE 91; RESP 10; O2SAT 97
[2023-01-12 03:30] VITALS: BP 160/95; PULSE 90; RESP 12; O2SAT 95
[2023-01-12 04:29] VITALS: BP 142/103; PULSE 87; RESP 19; O2SAT 97
== END 2023-01-12 05:00 | disposition home or self-care (01) ==
PROVIDERS: Emergency Provider Emergency Medicine; PCP Family Medicine
DX: R10.13 Epigastric pain (principal); K92.0 Hematemesis; E86.0 Dehydration; D72.829 Elevated white blood cell count, unspecified; R94.31 Abnormal electrocardiogram [ECG] [EKG]; Z98.84 Bariatric surgery status
CPT/HCPCS: 71275; 74174; 80053; 83605; 83690; 85025; 85610; 85730; 86850; 86900; 96374; 96375; 99285; C9113; J2405; Q9967

== ENCOUNTER 2023-02-16 11:29 | Oncology outpatient (recurring) (ONCR) | payer MEDICARE, SELFPAY ==
[2023-02-16 11:36] VITALS: BP 143/93; PULSE 105; RESP 18; TEMP 36.3; O2SAT 96
[2023-02-16 12:14] LABS: Alanine Aminotransferase 24 U/L (0-33); Albumin Level 3.8 g/dL (3.5-5.2); Alkaline Phosphatase 75 U/L (35-105); Anion Gap 14.1 (5-19); Aspartate Amino Transferase 24 U/L (0-32); Blood Urea Nitrogen 14 mg/dL (8-23); Calcium 9.4 mg/dL (8.5-10.5); Carbon Dioxide 24 mmol/L (22-29); Chloride 105 mmol/L (98-107); Ferritin 44 ng/mL (15-150); Globulin 3.1 g/dL (1.3-4.6); Glomerular Filtration Rate 72.7 mL/min (90-130); Glucose 68 mg/dL (65-115); Iron 147 ug/dL (37-145); Osmolality Calculated 287 mOsm/kg (285-295); Percent Saturation 53.4 % (20-50); Potassium 4.1 mmol/L (3.5-5.1); Sodium 139 mmol/L (136-145); Total Bilirubin 0.3 mg/dL (0.15-1.2); Total Iron Binding Capacity 275 mcg/dl; Total Protein 6.9 g/dL (6.6-8.7); Unsaturated Iron Binding 128 ug/dL (112-347)
[2023-02-16 12:28] LABS: 25 Hydroxy Vitamin D 17 ng/mL (30-100)
[2023-02-16 12:35] LABS: Basophils % 0.4 %; Eosinophils # 0.3 10^3/uL (0.0-0.8); Eosinophils % 2.7 %; Hematocrit 46.1 % (37.0-47.0); Hemoglobin 14.8 g/dL (11.5-15.3); Lymphocytes # 2.3 10^3/uL (0.8-4.8); Lymphocytes % 24.2 %; Mean Corpuscular HGB Conc 32.1 g/dL (30.0-36.0); Mean Corpuscular Volume 90.4 fl (81-99); Mean Platelet Volume 9.4 fL (7.4-10.4); Monocytes # 0.7 10^3/uL (0.2-0.9); Monocytes % 7.3 %; Neutrophils # 6.02 10^3/uL (1.8-7.7); Nucleated Red Blood Cells % 0 %; Platelet Count 477 10^3/cmm (130-400); Red Cell Distribution Width 13.8 % (12.1-15.1); White Blood Count 9.3 10^3/uL (4.0-10.0)
== END 2023-03-09 23:59 | disposition home or self-care (01) ==
PROVIDERS: PCP Family Medicine; Visit Provider Nurse Practitioner Family
DX: D05.11 Intraductal carcinoma in situ of right breast (principal); Z17.0 Estrogen receptor positive status [ER+]; D50.9 Iron deficiency anemia, unspecified; Z98.84 Bariatric surgery status; Z80.3 Family history of malignant neoplasm of breast; Z90.710 Acquired absence of both cervix and uterus; Z90.722 Acquired absence of ovaries, bilateral; Z79.899 Other long term (current) drug therapy; Z87.891 Personal history of nicotine dependence; Z79.818 Long term (current) use of other agents affecting estrogen receptors and estrogen levels
CPT/HCPCS: 36415; 80053; 82306; 82728; 83540; 83550; 85025; 99214

== ENCOUNTER → 2023-03-09 13:50 | Outpatient (BNVA) | payer MEDICARE, SELFPAY | PROVIDERS: PCP Family Medicine; Visit Provider Family Medicine | DX: N39.0 Urinary tract infection, site not specified (principal) | CPT/HCPCS: 81000 ==

== ENCOUNTER 2023-06-12 09:29 | Outpatient (CLI) | payer MEDICARE, OTHER, SELFPAY ==
--- NOTE | 2023-06-12 09:35 | MM_ITS ---
WS: [id number] DIAGNOSTIC BILATERAL DIGITAL BREAST TOMOSYNTHESIS MAMMOGRAPHY WITH CAD HISTORY: 6-month follow-up COMPARISON: 11/23/2022, 12/02/2022, 11/23/2022 TECHNIQUE: Bilateral craniocaudad, mediolateral oblique, and mediolateral views are submitted with to mosynthesis and SM. Spot compression RIGHT MLO. Computer aided detection utilized. Breast composition: There are scattered areas of fibroglandular density. There are no mammographic ab normalities identified. There are no suspicious areas of distortion. No adverse changes at the surgic al site within the RIGHT breast. Ultrasound is not necessary. IMPRESSION: MM/[place] [id number] BI-RADS: 2-Benign FOLLOW UP: 1 Year Follow-up
== END 2023-06-12 09:30 | disposition home or self-care (01) ==
PROVIDERS: PCP Family Medicine; Visit Provider Family Medicine
DX: R92.8 Other abnormal and inconclusive findings on diagnostic imaging of breast (principal)
CPT/HCPCS: 77062; G0279

== ENCOUNTER 2023-06-12 12:06 | Oncology outpatient (recurring) (ONCR) | payer MEDICARE, OTHER, SELFPAY ==
[2023-06-12 12:42] VITALS: BP 157/103; PULSE 96; RESP 16; TEMP 36.5; O2SAT 96
[2023-06-12 13:26] LABS: Alanine Aminotransferase 25 U/L (0-33); Albumin Level 3.8 g/dL (3.5-5.2); Alkaline Phosphatase 91 U/L (35-105); Anion Gap 14.1 (5-19); Aspartate Amino Transferase 26 U/L (0-32); Blood Urea Nitrogen 11 mg/dL (8-23); Calcium 9.7 mg/dL (8.5-10.5); Carbon Dioxide 22 mmol/L (22-29); Chloride 103 mmol/L (98-107); Globulin 3.3 g/dL (1.3-4.6); Glomerular Filtration Rate 72.4 mL/min (90-130); Glucose 107 mg/dL (65-115); Osmolality Calculated 280 mOsm/kg (285-295); Potassium 4.1 mmol/L (3.5-5.1); Sodium 135 mmol/L (136-145); Total Bilirubin 0.2 mg/dL (0.15-1.2); Total Protein 7.1 g/dL (6.6-8.7)
[2023-06-12 13:41] LABS: Ferritin 46 ng/mL (15-150); Iron 74 ug/dL (37-145); Total Iron Binding Capacity 284 mcg/dl; Unsaturated Iron Binding 210 ug/dL (112-347)
[2023-06-12 14:02] LABS: Basophils % 0.4 %; Eosinophils # 0.2 10^3/uL (0.0-0.8); Eosinophils % 1.9 %; Hematocrit 44.2 % (36-47); Lymphocytes # 2.5 10^3/uL (0.8-4.8); Lymphocytes % 22.9 %; Mean Corpuscular Volume 87.9 fl (85-98); Mean Platelet Volume 9.5 fL (7.4-10.4); Monocytes # 0.6 10^3/uL (0.2-0.9); Monocytes % 5.5 %; Neutrophils # 7.47 10^3/uL (1.8-7.7); Neutrophils % 68.7 %; Nucleated Red Blood Cells % 0 %; Platelet Count 487 10^3/cmm (157-399); Red Blood Count 5.03 10^6/uL (3.85-5.65); Red Cell Distribution Width 13.3 % (12.1-15.1); White Blood Count 10.87 10^3/uL (3.29-11.43)
== END 2023-07-09 23:59 | disposition home or self-care (01) ==
PROVIDERS: PCP Family Medicine; Visit Provider Nurse Practitioner Family
DX: E55.9 Vitamin D deficiency, unspecified (principal); D50.9 Iron deficiency anemia, unspecified
CPT/HCPCS: 36415; 80053; 82728; 83540; 83550; 85025

== ENCOUNTER 2024-03-06 13:36 | Emergency (ER) | payer MEDICARE, OTHER, SELFPAY ==
--- NOTE | 2024-03-06 13:36 | XR_ITS ---
WS: [id number] Exam: XR chest 1V portable [id number] Date/Time of Exam: 03/06/2024 1:37 PM Reason For Exam: cp Comparison 01/15/2020. Findings: The lungs are clear and fully expanded. Costophrenic angles are sharp. No infiltrates. Bronchovascula r relief appears normal. Cardiac silhouette is unremarkable. Bony elements are intact. XR/XR chest 1V portable [id number] IMPRESSION: Unremarkable chest radiograph.
--- NOTE | 2024-03-06 13:36 | ECG_ITS ---
[facility] Test Date: 2024-03-06 Pat Name: Betsy Marx Department: Room: Gender: Female Scaleman: : 1960 Requested By: Kurt Nieves Order Number: [id number] Joey MD: Bharat Charles M.D. Measurements Intervals [place] Rate: 98 P: 18 LA: 155 QRS: -64 QRSD: 94 T: 50 QT: 344 QTc: 440 Interpretive Statements SINUS RHYTHM LEFT ANTERIOR FASCICULAR BLOCK [QRS AXIS <= -45, QR IN I, RS IN II] POSSIBLE ANTERIOR MYOCARDIAL INFARCTION , OF INDETERMINATE AGE [30 ms Q WAVE IN V3/V4, OR R < 0.2 mV IN V4] Compared to ECG 07/02/2016 18:39:37 Left anterior fascicular block now present Myocardial infarct finding now present Electronically Signed On 03-07-2024 9:01:27 CDT by Bharat Charles M.D. [email or web address]
[2024-03-06 13:50] VITALS: BP 182/93; PULSE 99; RESP 20; TEMP 36.8; O2SAT 97; BMI 49.7
[2024-03-06 14:12] LABS: Basophils # 0.1 10^3/uL (0.0-0.1); Basophils % 0.4 %; Eosinophils # 0.4 10^3/uL (0.0-0.8); Hematocrit 42.4 % (36-47); Lymphocytes # 3.3 10^3/uL (0.8-4.8); Lymphocytes % 27.4 %; Mean Corpuscular HGB Conc 31.6 g/dL (30-55); Mean Corpuscular Hemoglobin 27.8 pg (27-33); Mean Platelet Volume 9.2 fL (7.4-10.4); Monocytes # 0.7 10^3/uL (0.2-0.9); Monocytes % 5.9 %; Neutrophils # 7.48 10^3/uL (1.8-7.7); Neutrophils % 62.7 %; Nucleated Red Blood Cells % 0 %; Platelet Count 532 10^3/cmm (157-399); Red Blood Count 4.82 10^6/uL (3.85-5.65); Red Cell Distribution Width 13.4 % (12.1-15.1); White Blood Count 11.93 10^3/uL (3.29-11.43)
[2024-03-06 14:25] LABS: Troponin(5th) Baseline 9 ng/L (0-10)
[2024-03-06 14:32] LABS: Albumin Level 3.3 g/dL (3.5-5.2); Alkaline Phosphatase 91 U/L (35-105); Blood Urea Nitrogen 12 mg/dL (8-23); Calcium 8.4 mg/dL (8.5-10.5); Carbon Dioxide 20 mmol/L (22-29); Chloride 104 mmol/L (98-107); Creatinine Clr Calc Pharmacy 83.2504; Globulin 3.5 g/dL (1.3-4.6); Glomerular Filtration Rate 63.2 mL/min (90-130); Glucose 119 mg/dL (65-115); NT Pro B Type Natriuretic Pept 40 pg/mL (0-125); Osmolality Calculated 281 mOsm/kg (285-295); Sodium 135 mmol/L (136-145); Total Bilirubin 0.2 mg/dL (0.15-1.2); Total Protein 6.8 g/dL (6.6-8.7)
[2024-03-06 14:49] LABS: Anion Gap 15.4 (5-19); Aspartate Amino Transferase 32 U/L (0-32); Potassium 4.4 mmol/L (3.5-5.1)
[2024-03-06 14:50] LABS: Alanine Aminotransferase 25 U/L (0-33)
--- NOTE | 2024-03-06 15:36 | ECG_ITS ---
[facility] Test Date: 2024-03-06 Pat Name: Betsy Marx Department: Room: Gender: Female [employer]: : 1960 Requested By: Kurt Nieves Order Number: [id number] Joey MD: Bharat Charles M.D. Measurements Intervals [place] Rate: 87 P: 14 VT: 166 QRS: -58 QRSD: 81 T: 8 QT: 343 QTc: 413 Interpretive Statements SINUS RHYTHM POSSIBLE LEFT ATRIAL ENLARGEMENT [-0.1mV P-WAVE IN V1/V2] LOW QRS VOLTAGE IN PRECORDIAL LEADS [QRS DEFLECTION < 1.0 mV IN CHEST LEADS] S1-S2-S3 PATTERN, CONSISTENT WITH PULMONARY DISEASE, RVH, OR NORMAL VARIANT POSSIBLE RIGHT VENTRICULAR CONDUCTION DELAY [RSR (QR) IN V1/V2] LEFT ANTERIOR FASCICULAR BLOCK [QRS AXIS <= -45, QR IN I, RS IN II] POSSIBLE ANTERIOR MYOCARDIAL INFARCTION , OF INDETERMINATE AGE [30 ms Q WAVE IN V3/V4, OR R < 0.2 mV IN V4] Compared to ECG 03/06/2024 13:41:12 Low QRS voltage now present Right ventricular hypertrophy now present Myocardial infarct finding still present Electronically Signed On 03-07-2024 9:07:31 CDT by Bharat Charles M.D. [email or web address]
[2024-03-06 16:03] LABS: Troponin 5 2HR 8.99 ng/L (0-10)
[2024-03-06 16:05] LABS: Troponin 5 2HR Delta -0.01 ABS# (0-10)
--- NOTE | 2024-03-06 16:12 | USR_ITS ---
PROCEDURE INFORMATION: Exam: US Abdomen, Limited; Right Upper Quadrant Exam date and time: 03/06/2024 4:17 PM Age: 63 years old Clinical indication: Abdominal pain; Prior surgery; Surgery date: 6+ months; Surgery type: Hernia repair. Gastric bypass; Additional info: Ruq pain TECHNIQUE: Imaging protocol: Real time ultrasound of the abdomen with image documentation. Limited exam focused on the right upper quadrant. COMPARISON: CT ang ches abdpel [id number] 01/12/2023 2:39 AM FINDINGS: Liver: Liver is normal in size. No masses. Normal portal vein. Gallbladder: Gallstones are seen. Gallbladder wall measures about 3 mm which is at the upper limits of normal. Buchanan's sign reported positive. Biliary ducts: Common bile duct measures 6 mm in diameter. Pancreas: Visualized pancreas is unremarkable. Right kidney: Normal. No mass. No hydronephrosis. US/US gall bladder [id number] IMPRESSION: Cholelithiasis with borderline wall thickening and positive Buchanan's sign. Otherwise normal exam.
--- NOTE | 2024-03-06 16:13 | ED_ITS ---
HPI - Chest Pain 2 General: Chief Complaint: Chest Pain Stated Complaint: CP/SOB Time Seen by Provider: 03/06/24 14:57 Source: patient Mode of arrival: ambulatory Limitations: no limitations History of Present Illness: Patient is a nice 63-year-old female with an extensive past medical history here for complaints of chest pain. She states that chest pain has been intermittent over the past 2 days. She states that initially started in the right side of her chest but later also had pain on the left side of her chest. She feels like it wraps around her chest/abdomen and into her back. She states she does not overly feel short of breath. No known cardiac history. States she had a stress test a decade ago that was normal but has not had any issues/cardiac testing since then. Patient states she has intermittent nausea and vomiting over the past several months. Family history of gallbladder disease. MD complaint: chest pain Onset (ago): day(s) (yesterday) Timing of current episode: episodic Prior episodes: No Pain location: left chest, right chest and epigastric Pain radiation: back Severity: moderate Relieving factors: nothing Exacerbating factors: nothing Associated symptoms: Reports abdominal pain, nausea and vomiting; Deny dyspnea, fever(s), palpitations or syncope Treatment prior to arrival: none Risk Factors: Thoracic aortic dissection risk factors: none Pulmonary embolism risk factors: malignancy Related Data Home Medications Medication Instructions Recorded Confirmed ascorbate calcium (vitamin C) 500 500 mg PO DAILY 08/02/22 12/04/23 mg tablet ferrous sulfate 325 mg (65 mg 325 mg PO BID 10/14/22 12/04/23 iron) tablet ketoconazole 2 % topical cream 1 applic topical BID 12/30/22 12/04/23 Previous Rx's Medication Instructions Recorded epinephrine 0.3 mg/0.3 mL 0.3 mg (0.3 mL) IM Q4H PRN 08/24/22 injection, auto-injector (EpiPen anaphylaxis #2 ea 2-Ezequiel) triamcinolone acetonide 0.1 % 1 applic topical BID #30 grams 08/24/22 topical cream nystatin 100,000 unit/gram topical 1 applic topical BID #60 grams 12/27/22 powder ondansetron 4 mg disintegrating 4 mg PO Q8H PRN nausea and 01/12/23 tablet vomiting #15 tabs cholecalciferol (vitamin D3) 250 250 mcg PO DAILY #90 caps 02/17/23 mcg (10,000 unit) capsule cefuroxime axetil 250 mg tablet 250 mg PO BID for urinary 03/09/23 infections #20 tabs diphenhydramine HCl 25 mg capsule 25 mg PO Q8H PRN hives #10 caps 09/14/23 (Benadryl) famotidine 40 mg tablet 40 mg PO DAILY 5 days #5 tabs 09/14/23 albuterol sulfate 90 mcg/actuation 2 puff inhalation Q6H PRN 12/04/23 aerosol inhaler (Ventolin HFA) shortness of breath or wheezing #8.5 grams azithromycin 250 mg tablet See Rx Instructions PO .COMPLEX #6 12/04/23 tabs phenazopyridine 100 mg tablet 100 mg PO TID as needed for 01/15/24 urinary issues #9 tabs ondansetron 4 mg disintegrating 4 mg PO Q8H PRN nausea and 03/06/24 tablet vomiting #14 tabs Allergies Allergy/AdvReac Type Severity Reaction Status Date / Time amoxicillin Allergy ALGY-Rash Verified 12/04/23 10:05 ciprofloxacin [From Cipro] Allergy RASH Verified 12/04/23 10:05 bee sting Allergy anaphylaxis Uncoded 12/04/23 10:05 Review of Systems 2 Const: Denies: fever(s), chills, body aches, fatigue or malaise Card: Reports: chest pain; Denies: palpitations, irregular heart rhythm, edema, swelling of feet/ankles, lightheadedness, syncope, pre-syncope, dyspnea on exertion, orthopnea, leg pain with exertion or acrocyanosis Resp: Reports: pain on inspiration; Denies: dyspnea, productive cough, non-productive cough, wheezing, change in phlegm color, hemoptysis or chest congestion GI: Reports: abdominal pain, nausea and vomiting; Denies: hematemesis, diarrhea, change in bowel habits, hematochezia or melena : Denies: flank pain, difficulty voiding, dysuria, urinary frequency, urinary urgency or urinary hesitancy Musc: Denies: neck pain, back pain, extremity pain, extremity swelling or joint pain Skin/Breast: Denies: rash Neuro: Denies: headache(s), numbness in extremities, weakness in extremities, sensory changes or dizziness PFSH ED 2 PFSH: Medical History Iron deficiency anemia 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; s/p lumpectomy w/ clear margins Hx of compression fracture of spine Psoriasis Generalized osteoarthritis Morbid obesity Rheumatoid arthritis Elevated blood pressure reading without diagnosis of hypertension Hyperlipidemia Recurrent UTI (urinary tract infection) Vitamin D deficiency disease Vitamin B12 deficiency Surgical History History of decompression of ulnar nerve History of bilateral carpal tunnel release History of gastric bypass History of hysterectomy History of section Family History Grandfather Cancer lung CAD (coronary artery disease) Dementia Father Cancer lung Lung disease Lung cancer Grandmother CAD (coronary artery disease) Sister Diabetes Stroke Family/Other Lung disease Uncles with black lung Other Anesthesia complication Hyperlipidemia Hypertension Denies family history of Clotting disorder Psychiatric illness Chronic kidney disease (CKD) Suicide Bleeding disorder Social History Smoking and tobacco/nicotine status: former use of tobacco/nicotine Quit status (tobacco/nicotine): has quit using Year quit tobacco: 2002 Former quit date comment: smoked for 20 years Alcohol intake: former Substance/Drug Use: never Household members: significant other Marital status: / Marital status details: engaged Number of children: 2 Number of grandchildren: 12 Current occupational status: retired Arianna/Zoroastrianism: Rastafari Agree to transfusion: Yes Physical Exam 2 Const: COMMON NORMALS: no acute distress, patient oriented x3, no limitations, alert and well nourished GENERAL APPEARANCE: cooperative NUTRITIONAL APPEARANCE: obese morbidly obese (BMI is 49.8) ORIENTATION/CONSCIOUSNESS: Yes awake, Yes oriented to person, Yes oriented to place and Yes oriented to time Chest: COMMONS NORMALS: normal inspection of the chest OTHER: some mild discomfort anterior chest wall Resp: COMMON NORMALS: normal respiratory effort and clear to auscultation bilaterally AUSCULTATION: clear to auscultation bilaterally Cardio: COMMON NORMALS: regular rate and regular rhythm RATE: regular rate RHYTHM: regular rhythm GI: COMMON NORMALS: Normal to inspection, nondistended, normoactive bowel sounds present, Soft to palpation, No hepatosplenomegaly present and no masses INSPECTION: Yes normal to inspection AUSCULTATION: Yes normoactive bowel sounds PALPATION: Yes Soft to palpation, Yes Tenderness to palpation present (GI) (throughout upper abdomen; RUQ), No Guarding due to palpation present (GI), No Rigid due to palpation and Yes No hepatosplenomegaly present Back/Pelvis: THORACIC SPINE/UPPER BACK: No thoracic spinal tenderness and Yes paraspinal muscle tenderness LUMBAR SPINE/LOWER BACK: No lumbar spinal tenderness OTHER: musculoskeletal pain throughout her back; reports history of RA Extremity: COMMON NORMALS: no clubbing, cyanosis or edema, no calf tenderness and no pedal edema GENERAL: Yes normal exam except as noted Neuro: DANIEL COMA SCALE: document GCS findings Daniel coma scale eye opening: Spontaneous Daniel coma scale verbal response: Orientated [place] coma scale motor response: Obey commands [place] coma scale total score: 15 COMMON NORMALS: patient oriented x3, moves all extremities, no focal motor deficits, no sensory deficits noted and gait normal SENSORIUM/ORIENTATION: Yes alert, Yes oriented to person, Yes oriented to place and Yes oriented to time Skin: COMMON NORMALS: no rashes or lesions noted GENERAL SKIN EXAM: no rashes or lesions noted Course 2 Vital Signs: Vital signs: Vital Signs Temperature 98.3 F 03/06/24 13:50 Pulse Rate 84 03/06/24 17:30 Respiratory Rate 18 03/06/24 17:30 Blood Pressure 152/105 03/06/24 17:27 Pulse Oximetry 94 03/06/24 17:30 Oxygen Delivery Me thod Room Air 03/06/24 13:50 MDM - Chest Pain Medical Decision Making Patient's baseline and repeat EKG showed no ischemic changes. Her baseline troponin is 9 with no change in her 2-hour trop. Her BNP is normal. CXR is unremarkable. D-dimer ordered based on her malignancy history. This was negative. Remainder of blood work unremarkable. On exam patient is tender to her right upper quadrant. Gallbladder ultrasound showing gallstones with borderline wall thickening. Patient states she was aware she had gallbladder stones and has been told about a questionable thick wall in the past. Her LFTs here are unremarkable. Certainly patient's pain radiating to her back could be secondary to biliary colic. Patient states Dr. Leggett did her previous lumpectomy and she would like to follow-up with him in regards to the gallbladder which I feel is acceptable. At this time I do not suspect anything emergent as far as acute coronary syndrome, dissection/aneurysm/pulmonary emboli for etiology of her chest discomfort. She can also follow-up with primary care if symptoms persist. Strict return to ED precautions given. Medical Records I reviewed the patient's medical records. Lab Data I reviewed the patient's lab results. 03/06/24 13:58 03/06/24 13:58 Radiology Impressions Chest X-Ray 03/06/24 13:36 IMPRESSION: Unremarkable chest radiograph. Gallbladder Ultrasound 03/06/24 16:12 IMPRESSION: Cholelithiasis with borderline wall thickening and positive Buchanan's sign. Otherwise normal exam. Laboratory Results WBC 11.93 10^3/uL (3.29-11.43) H 03/06/24 13:58 RBC 4.82 10^6/uL (3.85-5.65) 03/06/24 13:58 Hgb 13.40 g/dL (11.27-16.99) 03/06/24 13:58 Hct 42.4 % (36-47) 03/06/24 13:58 MCV 88.0 fl (85-98) 03/06/24 13:58 MCH 27.8 pg (27-33) 03/06/24 13:58 MCHC 31.6 g/dL (30-55) 03/06/24 13:58 RDW 13.4 % (12.1-15.1) 03/06/24 13:58 Plt Count 532 10^3/cmm (157-399) H 03/06/24 13:58 MPV 9.2 fL (7.4-10.4) 03/06/24 13:58 Neut % (Auto) 62.7 % 03/06/24 13:58 Lymph % (Auto) 27.4 % 03/06/24 13:58 [place] % (Auto) 5.9 % 03/06/24 13:58 Eos % (Auto) 3.0 % 03/06/24 13:58 Baso % (Auto) 0.4 % 03/06/24 13:58 Neut # (Auto) 7.48 10^3/uL (1.8-7.7) 03/06/24 13:58 Lymph # (Auto) 3.3 10^3/uL (0.8-4.8) 03/06/24 13:58 [place] # (Auto) 0.7 10^3/uL (0.2-0.9) 03/06/24 13:58 Eos # (Auto) 0.4 10^3/uL (0.0-0.8) 03/06/24 13:58 Baso # (Auto) 0.1 10^3/uL (0.0-0.1) 03/06/24 13:58 Nucleated RBC % (auto) 0 % 03/06/24 13:58 Nucleated RBCs # 0.0 /100WBC 03/06/24 13:58 D-Dimer 0.38 ug/mLFEU (0-0.59) 03/06/24 15:58 Sodium 135 mmol/L (136-145) L 03/06/24 13:58 Potassium 4.4 mmol/L (3.5-5.1) 03/06/24 13:58 Chloride 104 mmol/L (98-107) 03/06/24 13:58 Carbon Dioxide 20 mmol/L (22-29) L 03/06/24 13:58 Anion Gap 15.4 (5-19) 03/06/24 13:58 BUN 12 mg/dL (8-23) 03/06/24 13:58 Creatinine 0.9 mg/dL (0.5-0.9) 03/06/24 13:58 GFR Calculation 63.2 mL/min (90-130) L 03/06/24 13:58 Glucose 119 mg/dL (65-115) H 03/06/24 13:58 Calculated Osmolality 281 mOsm/kg (285-295) L 03/06/24 13:58 Calcium 8.4 mg/dL (8.5-10.5) L 03/06/24 13:58 Total Bilirubin 0.2 mg/dL (0.15-1.2) 03/06/24 13:58 AST 32 U/L (0-32) 03/06/24 13:58 ALT 25 U/L (0-33) 03/06/24 13:58 Alkaline Phosphatase 91 U/L (35-105) 03/06/24 13:58 Troponin T Baseline 9 ng/L (0-10) 03/06/24 13:58 Troponin T 120 Minute 8.99 ng/L (0-10) 03/06/24 15:38 Delta Troponin T -0.01 ABS# (0-10) L 03/06/24 15:38 NT-Pro-B Natriuret Pep 40 pg/mL (0-125) 03/06/24 13:58 Total Protein 6.8 g/dL (6.6-8.7) 03/06/24 13:58 Albumin 3.3 g/dL (3.5-5.2) L 03/06/24 13:58 Globulin 3.5 g/dL (1.3-4.6) 03/06/24 13:58 Lipase 29 U/L (13-60) 03/06/24 13:58 Urine Color Yellow (Yellow) 03/06/24 16:58 Urine Appearance Clear (CLEAR) 03/06/24 16:58 Urine pH 5.5 (5-7) 03/06/24 16:58 Ur Specific [place] 1.018 (1.005-1.030) 03/06/24 16:58 Urine Protein Negative (Negative) 03/06/24 16:58 Urine Glucose (UA) Negative (Normal) 03/06/24 16:58 Urine Ketones Negative (Negative) 03/06/24 16:58 Urine Blood Negative (Negative) 03/06/24 16:58 Urine Nitrate Negative (Negative) 03/06/24 16:58 Urine Bilirubin Negative (Negative) 03/06/24 16:58 Urine Urobilinogen 1.0 mg/dL (Negative) 03/06/24 16:58 Ur Leukocyte Esterase Negative (Negative) 03/06/24 16:58 Urine RBC 0-2 /hpf (0-2) 03/06/24 16:58 Urine WBC 0-5 /hpf (0-5) 03/06/24 16:58 Ur Squamous Epith Cells 0-5 /hpf (0-5) 03/06/24 16:58 Amorphous Sediment Not Reportable 03/06/24 16:58 Urine Bacteria 1+ /hpf (NONE) H 03/06/24 16:58 Hyaline Casts 0-4 /lpf H 03/06/24 16:58 All radiology interpretation(s) finalized by discharge Discharge Plan Discharge Patient Disposition: Home Clinical Impression: Symptomatic cholelithiasis Condition: Stable Prescriptions: New ondansetron 4 mg tablet,disintegrating 4 mg PO Q8H PRN (Reason: nausea and vomiting) Qty: 14 0RF No Action ascorbate calcium (vitamin C) 500 mg tablet 500 mg PO DAILY epinephrine [EpiPen 2-Ezequiel] 0.3 mg/0.3 mL auto-injector 0.3 mg IM Q4H PRN (Reason: anaphylaxis) Qty: 2 0RF triamcinolone acetonide 0.1 % cream 1 applic topical BID Qty: 30 0RF ferrous sulfate 325 mg (65 mg iron) tablet 325 mg PO BID nystatin 100,000 unit/gram powder 1 applic topical BID Qty: 60 0RF cefuroxime axetil 250 mg tablet 250 mg PO BID Qty: 20 2RF famotidine 40 mg tablet 40 mg PO DAILY 5 Days Qty: 5 0RF diphenhydramine HCl [Benadryl] 25 mg capsule 25 mg PO Q8H PRN (Reason: hives) Qty: 10 0RF azithromycin 250 mg tablet See Rx Instructions PO .COMPLEX Qty: 6 0RF Rx Instructions: take 500 mg today (day 1), then 250 mg for 4 days (days 2-5) PO albuterol sulfate [Ventolin HFA] 90 mcg/actuation HFA aerosol inhaler 2 puff inhalation Q6H PRN (Reason: shortness of breath or wheezing) Qty: 8.5 0RF cholecalciferol (vitamin D3) 250 mcg (10,000 unit) capsule 250 mcg PO DAILY Qty: 90 0RF phenazopyridine 100 mg tablet 100 mg PO TID Qty: 9 2RF ketoconazole 2 % cream 1 applic TOPICAL BID ondansetron 4 mg tablet,disintegrating 4 mg PO Q8H PRN (Reason: nausea and vomiting) Qty: 15 0RF Discharge Orders: Discharge ED (Routine); Ordered 03/06/24 Ordered By: Josselin Ram Referrals: Laura Lazo MD [Primary Care Provider] - Patient Instructions: Cholelithiasis, Gallstones (ED) Activity Restrictions/Additional Instructions: As we discussed, you would like to follow-up with Dr. Leggett in regards to your gallbladder findings today. Please contact his office so they can request medical records. As we discussed I would like you to return to the emergency department for worsening abdominal pain, repetitive episodes of vomiting, fevers, yellowing to your skin or eyes, generally feeling worse or unwell, or any other concerns you may have. Hope you begin to feel better soon. You may also return to the emergency department for worsening chest pain, shortness of breath, difficulty breathing. Coding Level of Care Code ED Structural Steel Erection Supervisor for Nya Cheng
[2024-03-06 16:23] VITALS: BP 199/106; PULSE 87; RESP 18; O2SAT 96
[2024-03-06 16:38] LABS: D Dimer 0.38 ug/mLFEU (0-0.59)
[2024-03-06 17:01] LABS: Lipase 29 U/L (13-60)
[2024-03-06 17:09] LABS: Charge for UA Resulting for Rev
[2024-03-06 17:15] LABS: Bilirubin Urine Negative (Negative); Blood Urine Negative (Negative); Glucose Urine UA Negative (Normal); Ketones Urine Negative (Negative); Leukocyte Esterase Urine Negative (Negative); Nitrate Urine Negative (Negative); Protein Urine Negative (Negative); Specific Gravity, Urine 1.018 (1.005-1.030); Urine Appearance Clear (CLEAR); Urine Color Yellow (Yellow); pH Urine 5.5 (5-7)
[2024-03-06 17:18] LABS: Bacteria Urine 1+ /hpf; Hyaline Casts Urine 0-4 /lpf; RBC Urine 0-2 /hpf (0-2); Squamous Epithelial Cell Urine 0-5 /hpf (0-5); WBC Urine 0-5 /hpf (0-5)
[2024-03-06 17:27] VITALS: BP 152/105; PULSE 82; RESP 18; O2SAT 99
[2024-03-06 17:30] VITALS: PULSE 84; RESP 18; O2SAT 94
== END 2024-03-06 17:34 | disposition home or self-care (01) ==
PROVIDERS: Emergency Medicine; Emergency Provider Physician Assistant; PCP Family Medicine
DX: K80.20 Calculus of gallbladder without cholecystitis without obstruction (principal); Z87.891 Personal history of nicotine dependence; E78.5 Hyperlipidemia, unspecified
CPT/HCPCS: 36415; 71045; 76705; 80053; 81003; 81015; 83690; 83880; 84484; 85025; 85378; 93005; 99285

== ENCOUNTER → 2024-03-27 14:40 | Outpatient (BNVA) | payer MEDICARE, OTHER, SELFPAY | PROVIDERS: PCP Family Medicine; Visit Provider Internal Medicine Cardiovascular Disease | DX: R94.31 Abnormal electrocardiogram [ECG] [EKG] (principal); R06.02 Shortness of breath; Z01.818 Encounter for other preprocedural examination; R07.9 Chest pain, unspecified; Z87.891 Personal history of nicotine dependence | CPT/HCPCS: 99204 ==

== ENCOUNTER 2024-04-26 12:14 | Outpatient (CLI) | payer MEDICARE, OTHER, SELFPAY ==
--- NOTE | 2024-04-26 12:45 | USCV_ITS ---
Betsy Marx Age: 63 Gender: F : 1960 Exam Date: 04/26/2024 13:15 Ordering Phys: Jason Avila MD ([email or web address]) Technologist: CT Exam Location: [facility] [place] Indication: BP: 157 / 103 HR: 73 Rhythm: Sinus Technical Quality: Technically difficult study MEASUREMENTS (Male / Female) Normal Values 2D ECHO LVOT Diameter 2.0 cm LV Ejection Fraction MOD 4C 61.3 % LV Ejection Fraction MOD 2C 66.3 % LV Ejection Fraction 2C AL 66.0 % LA Diameter 3.6 cm RA Systolic Volume 4C AL 26.2 ml RA Systolic Volume 4C MOD 25.7 ml LA Sys Volume AL 46.0 cm cubed LA Sys Volume Index AL 18.6 cm cubed/m squared M-MODE LA Ao Ratio MM 1.3 AV Cusp Separation MM 1.6 cm DOPPLER AV Peak Velocity 120.0 cm/s LVOT Peak Velocity 61.0 cm/s AV Area Cont Eq vti 1.8 cm squared AV Area Cont Eq pk 1.6 cm squared MV Peak Velocity 122.0 cm/s MV Area PHT 3.9 cm squared TR Peak Velocity 205.0 cm/s TR Peak Gradient 16.8 mmHg Right Atrial Pressure 3.0 mmHg Pulmonary Artery Systolic Pressu 19.8 mmHg PV Peak Velocity 114.0 cm/s FINDINGS Left Ventricle Normal left ventricular size, systolic function and wall thickness, with no regional wall motion abnormalities. Left ventricular ejection fraction is estimated at 60 %. Grade I/IV diastolic dysfunction (abnormal relaxation filling pattern), normal to mildly elevated filling pressures. Right Ventricle The right ventricle is normal in size and function. Right Atrium The right atrium is normal in size. Left Atrium The left atrium is normal in size. Mitral Valve Structurally normal mitral valve without significant stenosis or prolapse. There is no mitral regurgitation. Aortic Valve Structurally normal aortic valve without significant sclerosis or stenosis. There is no aortic regurgitation. Tricuspid Valve Structurally normal tricuspid valve without significant stenosis or regurgitation. Pulmonary artery systolic pressure is normal. Pulmonic Valve Structurally normal pulmonic valve without significant stenosis. There is no pulmonic regurgitation. Pericardium Normal pericardium without effusion. Aorta Normal ascending aorta dimension. IVC The inferior vena cava appears normal. CONCLUSIONS CONCLUSIONS: 1. Normal left ventricular size, systolic function and wall thickness, with no regional wall motion abnormalities. Left ventricular ejection fraction is estimated at 60%. Normal left ventricular wall thickness.Grade I/IV diastolic dysfunction (abnormal relaxation filling pattern), normal to mildly elevated filling pressures. 2. No significant chamber abnormalities. 3. No sigificant valve abnormalities. 4. There is no pericardial effusion. 5. There are no intracardiac masses. 6. Pulmonary artery systolic pressure is within normal limits. 7. Right atrial pressure is around 5 mm of mercury. Jason Avila MD (Electronically Signed) Final Date: 26 April 2024 19:40 S
== END 2024-04-26 12:15 | disposition home or self-care (01) ==
LOC: RAD 12:15
PROVIDERS: PCP Family Medicine; Visit Provider Internal Medicine Cardiovascular Disease
DX: I50.30 Unspecified diastolic (congestive) heart failure (principal); R94.31 Abnormal electrocardiogram [ECG] [EKG]; R06.02 Shortness of breath
CPT/HCPCS: 93306

== ENCOUNTER 2024-06-13 09:07 | Outpatient (CLI) | payer MEDICARE, OTHER, SELFPAY ==
--- NOTE | 2024-06-13 09:30 | MM_ITS ---
WS: [id number] BILATERAL 3D TOMOSYNTHESIS DIGITAL DIAGNOSTIC MAMMOGRAPHY WITH CAD CLINICAL INFORMATION: hx of breast cancer; back to yearly mammo HISTORY: RIGHT breast lumpectomy. COMPARISON: 2022 TECHNIQUE: Bilateral CC, MLO, and ML views. FINDINGS: Scattered fibroglandular densities bilaterally. Prior RIGHT lumpectomy. No suspicious findings RIGHT breast. No suspicious focal mass, asymmetry, calcifications, or architectural distortion. No evidence of ghassan gnancy. MM/MM diag tomosynthesis [id number] IMPRESSION: DENSITY: There are scattered areas of fibroglandular density. BI-RADS: 2 - Benign. FOLLOW UP: 1 Year Follow-up Recommend return to annual diagnostic mammography.
== END 2024-06-13 09:08 | disposition home or self-care (01) ==
LOC: RAD 09:08
PROVIDERS: PCP Family Medicine; Visit Provider Family Medicine
DX: Z86.000 Personal history of in-situ neoplasm of breast (principal); Z98.890 Other specified postprocedural states; R92.323 Mammographic fibroglandular density, bilateral breasts
CPT/HCPCS: 77062; G0279

== ENCOUNTER 2024-07-09 20:13 | Emergency (ER) | payer MEDICARE, OTHER, SELFPAY ==
[2024-07-09 20:21] VITALS: BP 197/111; PULSE 93; RESP 16; TEMP 37; O2SAT 97
[2024-07-09 20:31] VITALS: BP 156/93; PULSE 89; RESP 18; O2SAT 96
--- NOTE | 2024-07-09 20:35 | XRR_ITS ---
PROCEDURE INFORMATION: Exam: XR Left Hand Exam date and time: 07/09/2024 8:44 PM Age: 64 years old Clinical indication: Injury or trauma; Other: Hit lt hand on a corner; Blunt trauma (contusions or hematomas); Left; Additional info: Injury/pain TECHNIQUE: Imaging protocol: Radiologic exam of the left hand. Views: 3 or more views. COMPARISON: No relevant prior studies available. FINDINGS: Bones/joints: Normal. Soft tissues: Normal. XR/XR hand LT min 3V* [id number] IMPRESSION: No acute findings.
--- NOTE | 2024-07-09 20:35 | W.ED.UPPEXIN ---
HPI - Extremity Injury (Upper) General: Chief Complaint: Extremity Injury, Upper Stated Complaint: L. hand injury Time Seen by Provider: 07/09/24 20:27 Source: patient Mode of arrival: ambulatory Limitations: no limitations History of Present Illness: Patient 64-year-old female presents to ED today with a complaint of a left hand injury. Patient states just prior to arrival she was trying to get out of a reclining sofa when she accidentally struck the dorsum of her left hand on the plastic drink cano in between the sofa seats. She has no other complaints at this time apart from left hand pain. MD complaint: injury to: left and hand Onset (ago): hour(s) Other Extremity Injury: Left: hand Other injuries: none Place: home Severity: moderate Relieving factors: immobilization Exacerbating factors: movement of extremity Context: direct blow Associated symptoms: Reports no associated symptoms Related Data Home Medications Medication Instructions Recorded Confirmed ascorbate calcium (vitamin C) 500 500 mg PO DAILY 08/02/22 06/19/24 mg tablet ketoconazole 2 % topical cream 1 applic topical BID 12/30/22 06/19/24 Previous Rx's Medication Instructions Recorded epinephrine 0.3 mg/0.3 mL 0.3 mg (0.3 mL) IM Q4H PRN 08/24/22 injection, auto-injector (EpiPen anaphylaxis #2 ea 2-Ezequiel) nystatin 100,000 unit/gram topical 1 applic topical BID #60 grams 12/27/22 powder diphenhydramine HCl 25 mg capsule 25 mg PO Q8H PRN hives #10 caps 09/14/23 (Benadryl) phenazopyridine 100 mg tablet 100 mg PO TID as needed for 01/15/24 urinary issues #9 tabs ondansetron 4 mg disintegrating 4 mg PO Q8H PRN nausea and 03/06/24 tablet vomiting #14 tabs cefuroxime axetil 250 mg tablet 250 mg PO BID for urinary 04/02/24 infections #20 tabs cholecalciferol (vitamin D3) 25 25 mcg PO DAILY #90 caps 04/02/24 mcg (1,000 unit) capsule cetirizine 10 mg tablet (Zyrtec) 10 mg PO DAILY #30 tabs 05/11/24 fluticasone propionate 50 2 spray intranasal BID allergy 05/11/24 mcg/actuation nasal symptoms #16 grams spray,suspension (Flonase Allergy Relief) halobetasol propionate 0.05 % 1 applic topical BID PRN eczema 05/11/24 topical cream #50 grams doxycycline hyclate 100 mg capsule 100 mg PO BID #20 caps 06/14/24 Allergies Allergy/AdvReac Type Severity Reaction Status Date / Time amoxicillin Allergy ALGY-Rash Verified 06/19/24 09:25 ciprofloxacin [From Cipro] Allergy RASH Verified 06/19/24 09:25 bee sting Allergy anaphylaxis Uncoded 06/19/24 09:25 Review of Systems Musc: Reports: extremity pain (L hand); Denies: extremity swelling, joint pain or joint swelling Neuro: Denies: numbness in extremities or sensory changes PFSH ED PFSH: Medical History White coat syndrome without hypertension Cholelithiasis saw Dr. 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; s/p lumpectomy w/ clear margins Hx of compression fracture of spine Psoriasis Generalized osteoarthritis Morbid obesity Rheumatoid arthritis Elevated blood pressure reading without diagnosis of hypertension Hyperlipidemia Recurrent UTI (urinary tract infection) Vitamin D deficiency disease Vitamin B12 deficiency Surgical History Bariatric surgery status History of lumpectomy of right breast Hx of melanoma excision R arm History of decompression of ulnar nerve left History of bilateral carpal tunnel release History of gastric bypass 2000 History of hysterectomy Hyst w/ BSO done for bleeding and fibroids, no cancer; had incisional hernia repaired at this time History of section X 2 Family History Grandfather Cancer lung CAD (coronary artery disease) Dementia Father Cancer lung Lung disease Lung cancer Grandmother CAD (coronary artery disease) Sister Diabetes Stroke Family/Other Lung disease Uncles with black lung Other Anesthesia complication Hyperlipidemia Hypertension Denies family history of Clotting disorder Psychiatric illness Chronic kidney disease (CKD) Suicide Bleeding disorder Social History Smoking and tobacco/nicotine status: former use of tobacco/nicotine Quit status (tobacco/nicotine): has quit using Year quit tobacco: 2002 Former quit date comment: smoked for 20 years Alcohol intake: former Substance/Drug Use: never Household members: significant other Marital status: / Marital status details: engaged Number of children: 2 Number of grandchildren: 12 Highest education level completed: Bachelor's Degree Current occupational status: retired 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 [employer] Arianna/Samaritan: Sikhism Agree to transfusion: Yes Physical Exam Const: COMMON NORMALS: no limitations, alert and well nourished Extremity: GENERAL: Yes normal exam except as noted LEFT UPPER EXTREMITY: Yes hand & digits (TTP dorsal L hand without obvious edema or bony deformity) Left hand and digits: Yes neurovascular exam (normal) and Yes other (psoriatic lesions) Neuro: COMMON NORMALS: moves all extremities, no focal motor deficits and no sensory deficits noted SENSORIUM/ORIENTATION: Yes alert Course Vital Signs: Vital signs: Vital Signs Temperature 98.6 F 07/09/24 20:21 Pulse Rate 89 07/09/24 20:31 Respiratory Rate 18 07/09/24 20:31 Blood Pressure 156/93 07/09/24 20:31 Pulse Oximetry 96 07/09/24 20:31 Oxygen Delivery Me thod Room Air 07/09/24 20:31 MDM - Extremity Injury (Upper) Medical Decision Making Personal interpretation of patient's left hand XR is unremarkable. Patient will be allowed discharge. She can follow up with PCP in two weeks or so for continued pain. XR interpretation done by ED provider, pending radiology final review Discharge Plan Discharge Patient Disposition: Home Clinical Impression: Contusion of dorsum of left hand Condition: Stable Prescriptions: No Action ascorbate calcium (vitamin C) 500 mg tablet 500 mg PO DAILY epinephrine [EpiPen 2-Ezequiel] 0.3 mg/0.3 mL auto-injector 0.3 mg IM Q4H PRN (Reason: anaphylaxis) Qty: 2 0RF nystatin 100,000 unit/gram powder 1 applic topical BID Qty: 60 0RF diphenhydramine HCl [Benadryl] 25 mg capsule 25 mg PO Q8H PRN (Reason: hives) Qty: 10 0RF cholecalciferol (vitamin D3) 25 mcg (1,000 unit) capsule 25 mcg PO DAILY Qty: 90 0RF cefuroxime axetil 250 mg tablet 250 mg PO BID Qty: 20 2RF cetirizine [Zyrtec] 10 mg tablet 10 mg PO DAILY Qty: 30 0RF halobetasol propionate 0.05 % cream 1 applic topical BID PRN (Reason: eczema) Qty: 50 0RF fluticasone propionate [Flonase Allergy Relief] 50 mcg/actuation spray,suspension 2 spray intranasal BID Qty: 16 0RF Rx Instructions: administer into each nostril doxycycline hyclate 100 mg capsule 100 mg PO BID Qty: 20 0RF phenazopyridine 100 mg tablet 100 mg PO TID Qty: 9 2RF ketoconazole 2 % cream 1 applic TOPICAL BID ondansetron 4 mg tablet,disintegrating 4 mg PO Q8H PRN (Reason: nausea and vomiting) Qty: 14 0RF Discharge Orders: Discharge ED (Routine); Ordered 07/09/24 Ordered By: Josselin Ram Referrals: Mechelle Jj MD [Primary Care Provider] - Patient Instructions: Contusion in Adults (ED) Coding Level of Care Code ED Seasonal Customer Service Associate for Nya Cheng
[2024-07-09 21:22] VITALS: BP 154/91; PULSE 81; O2SAT 96
== END 2024-07-09 21:23 | disposition home or self-care (01) ==
PROVIDERS: Emergency Provider Physician Assistant; PCP Family Medicine
DX: S60.222A Contusion of left hand, initial encounter (principal); Z87.891 Personal history of nicotine dependence; Z85.820 Personal history of malignant melanoma of skin; E78.5 Hyperlipidemia, unspecified; Z85.3 Personal history of malignant neoplasm of breast; X58.XXXA Exposure to other specified factors, initial encounter
CPT/HCPCS: 73130; 99283

== ENCOUNTER → 2024-07-21 17:39 | Outpatient (BNVA) | payer MEDICARE, OTHER, SELFPAY | PROVIDERS: PCP Family Medicine; Visit Provider Nurse Practitioner | DX: M77.31 Calcaneal spur, right foot (principal) | CPT/HCPCS: 73630 ==

== ENCOUNTER → 2024-08-02 10:30 | Outpatient (BNVA) | payer MEDICARE, OTHER, SELFPAY | PROVIDERS: PCP Family Medicine; Visit Provider Family Medicine | DX: E55.9 Vitamin D deficiency, unspecified (principal); E53.8 Deficiency of other specified B group vitamins; E78.2 Mixed hyperlipidemia; Z98.84 Bariatric surgery status | CPT/HCPCS: 82306; 82607; 83540; 84439; 84443; 85025 ==

== ENCOUNTER 2024-10-06 12:36 | Emergency (ER) | payer MEDICARE, OTHER, SELFPAY ==
[2024-10-06 12:37] VITALS: BP 162/109; PULSE 101; RESP 22; TEMP 36.6; O2SAT 97; BMI 44.6
--- NOTE | 2024-10-06 12:49 | CTR_ITS ---
PROCEDURE INFORMATION: Exam: CT Chest Without Contrast; Diagnostic Exam date and time: 10/06/2024 12:58 PM Age: 64 years old Clinical indication: Shortness of breath; PT arrives pov C/O swallowing a york peppermint suzanne and believes that a piece of it went into her lung. PT has not been able to cough it up and has been SOB since then. ; Additional info: Concern for aspirated candy. SOB TECHNIQUE: Imaging protocol: Diagnostic computed tomography of the chest without contrast. Radiation optimization: All CT scans at this facility use at least one of these dose optimization techniques: automated exposure control; mA and/or kV adjustment per patient size (includes targeted exams where dose is matched to clinical indication); or iterative reconstruction. COMPARISON: CR XR chest 1V portable [id number] 03/06/2024 1:53 PM RADIATION DOSE METRICS: Total DLP (mGy-cm): 630.07 FINDINGS: Lungs: 5 mm pulmonary nodule anterior right upper lobe, series 4, image 25. No infiltrate. Atelectasis left lung base. Pleural spaces: Unremarkable. No pneumothorax. No pleural effusion. Heart: Unremarkable. No cardiomegaly. No pericardial effusion. Coronary arteries: There is atherosclerotic calcification coronary arteries. Lymph nodes: Unremarkable. No enlarged lymph nodes. Vasculature: Unremarkable. No aortic aneurysm. Diaphragm: There is a small hiatal hernia. Stomach: There has been gastric bypass. Bones/joints: Unremarkable. No acute fracture. Soft tissues: Unremarkable. Other findings: No radiopaque foreign body. CT/CT chest [facility] [id number] IMPRESSION: 1. No acute findings. 2. 5 mm pulmonary nodule anterior right upper lobe, series 4, image 25. Recommend interval follow-up per Fleischner society criteria. For patients at low risk (minimal or absent history of smoking and of other known risk factors), no routine follow-up is indicated. For patients at high risk (history of smoking or of other known risk factors), consider optional CT Chest at 12 months. (Reference: Arlen) References: Arlen Gray et al. Guidelines for Management of Incidental Pulmonary Nodules Detected on CT Images: From the Fleischner Society 2017. Radiology. 2017;284(1):228-243.
--- NOTE | 2024-10-06 13:02 | ED_ITS ---
HPI - SOB/Dyspnea 2 General: Chief Complaint: Airway/Esophagus Foreign Body Stated Complaint: SOB, food stuck in throat Time Seen by Provider: 10/06/24 12:49 History of Present Illness: HPI Narrative: 64-year-old female with history of obesi ty, hypertension who presents to the emergency room with concern for aspirating a piece of candy. She says she choked on a piece of candy and coughed a lot and brought up some sputum and since then she has been short of breath. Some burning in her chest. No oxygen requirements on presentation but is she is a bit tachypneic. Related Data Home Medications ?Medication ?Instructions ?Recorded ?Confirmed cefuroxime axetil 250 mg tablet 250 mg PO BID PRN for urinary 10/06/24 10/06/24 infections cetirizine 10 mg tablet (Zyrtec) 10 mg PO DAILY PRN al lergies 10/06/24 10/06/24 cyanocobalamin (vitamin B-12) 1,000 mcg PO DAILY PRN l ow b 12 10/06/24 10/06/24 1,000 mcg tablet (Vitamin B-12) ferrous sulfate 325 mg (65 mg 325 mg PO DAILY PRN low iron 10/06/24 10/06/24 iron) tablet ketoconazole 2 % topical cream 1 applic topical BID WI N Skin 10/06/24 10/06/24 Irritation Previous Rx's ?Medication ?Instructions ?Recorded cholecalciferol (vitamin D3) 25 25 mcg PO DAILY #90 ca ps 04/02/24 mcg (1,000 unit) capsule Walking Boot #1 ea 07/21/24 halobetasol propionate 0.05 % 1 applic topical BID PRN eczema 08/02/24 topical cream #50 grams epinephrine 0.3 mg/0.3 mL 0.3 mg (0.3 mL) IM Q4H PRN 0 09/30/24 injection, auto-injector (EpiPen anaphylaxis #2 ea 2-Ezequiel) ondansetron 4 mg disintegrating 4 mg PO Q8H PRN nausea and 09/30/24 tablet vomiting #30 tabs albuterol sulfate 90 mcg/actuation 2 inh inhalation Q4 H PRN shortness 10/06/24 aerosol inhaler of breath or wheezing #6.7 g william dexamethasone 6 mg tablet 6 mg PO DAILY 5 days #5 tabs 03/30/25 doxycycline hyclate 100 mg capsule 100 mg PO BID 7 day s #14 caps 10/06/24 Allergies Allergy/AdvReac Type Severity Reaction Status Date / Time amoxicillin Allergy ALGY-Rash Verified 10/06/24 12:42 ciprofloxacin (From Cipro) Allergy RASH Verified 10/06/24 12:42 bee sting Allergy anaphylaxis Uncoded 10/06/24 12:42 Review of Systems 2 Narrative: Constitutional symptoms: Negative except as documented in HPI. Skin symptoms: Negative except as documented in HPI. Eye symptoms: Negative except as documented in HPI. ENMT symptoms: Negative except as documented in HPI. Respiratory symptoms: Negative except as documented in HPI. Cardiovascular symptoms: Negative except as documented in HPI. Gastrointestinal symptoms: Negative except as documented in HPI. Genitourinary symptoms: Negative except as documented in HPI. Musculoskeletal symptoms: Negative except as documented in HPI. Neurologic symptoms: Negative except as documented in HPI. Psychiatric symptoms: Negative except as documented in HPI. Endocrine symptoms: Negative except as documented in HPI. PFSH ED 2 PFSH: Medical History Fasting hyperglycemia Plantar fasciitis, right Bone spur of toe of right foot White coat syndrome without hypertension Cholelithiasis saw Dr. 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; s/p lumpectomy w/ clear margins Hx of compression fracture of spine Psoriasis Generalized osteoarthritis Morbid obesity Rheumatoid arthritis Elevated blood pressure reading without diagnosis of hypertension Hyperlipidemia Recurrent UTI (urinary tract infection) Vitamin D deficiency disease Vitamin B12 deficiency Surgical History Bariatric surgery status History of lumpectomy of right breast cancer Hx of melanoma excision R arm History of decompression of ulnar nerve left History of bilateral carpal tunnel release History of gastric bypass 2000 History of hysterectomy Hyst w/ BSO done for bleeding and fibroids, no cancer; had incisional hernia repaired at this time History of section X 2 Family History Grandfather Cancer lung CAD (coronary artery disease) Dementia Father Cancer lung Lung disease Lung cancer Grandmother CAD (coronary artery disease) Sister Diabetes Stroke Family/Other Lung disease Uncles with black lung Other Anesthesia complication Hyperlipidemia Hypertension Denies family history of Clotting disorder Psychiatric illness Chronic kidney disease (CKD) Suicide Bleeding disorder Social History Smoking and tobacco/nicotine status: former use of tobacco/nicotine Quit status (tobacco/nicotine): has quit using Year quit tobacco: 2002 Former quit date comment: smoked for 20 years Alcohol intake: former Substance/Drug Use: never Household members: significant other Marital status: / Marital status details: engaged Number of children: 2 Number of grandchildren: 12 Highest education level completed: Bachelor's Degree Current occupational status: retired 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 Skin: Warm, dry. Head: Normocephalic, atraumatic. Neck: Supple, trachea midline. Eye: Extraocular movements are intact. Ears, nose, mouth and throat: mucosa moist. Cardiovascular: Regular, Normal peripheral perfusion. Respiratory: Lungs are clear to auscultation, respirations are non-labored, breath sounds are equal, Symmetrical chest wall expansion. Gastrointestinal: Soft, Nontender, Non distended Musculoskeletal: Normal ROM, no deformity. Neurological: Alert and oriented, No focal neurological deficit observed. Psychiatric: Cooperative, appropriate mood & affect. Course 2 Vital Signs: Vital signs: Vital Signs Temperature 97.9 F 10/06/24 12:37 Pulse Rate 89 10/06/24 13:30 Respiratory Rate 16 10/06/24 13:30 Blood Pressure 162/109 10/06/24 12:37 Pulse Oximetry 97 10/06/24 13:30 Oxygen Delivery Me thod Room Air 10/06/24 13:30 MDM - SOB/Dyspnea Medical Decision Making Differential diagnosis for patient with shortness of breath includes but is not limited to and based on the above HPI, review of systems and physical exam: Pneumonia. Bronchitis. Asthma or COPD with acute exacerbation. Acute coronary syndrome / MA. Pulmonary embolism. Anxiety. Congestive heart failure. Viral infections including influenza and Covid-19. Atrial fibrillation. Anxiety. Pleural effusion. Pneumothorax. Orders placed to evaluate differential diagnosis based on the above differential, HPI and physical exam Lab Review: Laboratory results were reviewed and interpreted by myself the emergency room physician. No leukocytosis. No anemia. No renal failure. CT of the chest without contrast: No acute findings. No signs of aspiration. There is a pulmonary nodule. This was discussed with the patient. She needs follow-up with a CT in 12 months. This was reviewed and interpreted by myself the emergency room physician. I also reviewed the radiology report. I reviewed the patient's medical record. Reexamination: Patient remained stable. No increased work of breathing. No altered mental status. No focal motor deficits. Patient somewhat improved. Assessment and plan: Aspiration into airway Pulmonary nodule ?I will place her on doxycycline to prevent an aspiration pneumonia. Some dexamethasone. Inhaler sent. ?First dose Doxy, Decadron and a DuoNeb given here in the emergency room. - Discharged home - Discussed findings and plan with patient. Answered any questions. - All laboratory values were reviewed and interpreted personally by myself, the ER physician - All imaging was reviewed and interpreted personally by myself, the ER physician. - Evaluation and treatment of this problem were appropriate in the emergency setting Lab Data 10/06/24 13:11 10/06/24 13:11 Labs/Radiology: Radiology Impressions Chest CT 10/06/24 12:49 IMPRESSION: 1. No acute findings. 2. 5 mm pulmonary nodule anterior right upper lobe, series 4, image 25. Recommend interval follow-up per Fleischner society criteria. For patients at low risk (minimal or absent history of smoking and of other known risk factors), no routine follow-up is indicated. For patients at high risk (history of smoking or of other known risk factors), consider optional CT Chest at 12 months. (Reference: Arlen) References: Arlen Gray et al. Guidelines for Management of Incidental Pulmonary Nodules Detected on CT Images: From the Fleischner Society 2017. Radiology. 2017;284(1):228-243. Laboratory Results WBC 12.03 10^3/uL (3.29-11.43) H 10/06/24 13:11 RBC 4.79 10^6/uL (3.85-5.65) 10/06/24 13:11 Hgb 13.30 g/dL (11.27-16.99) 10/06/24 13:11 Hct 41.8 % (36-47) 10/06/24 13:11 MCV 87.3 fl (85-98) 10/06/24 13:11 MCH 27.8 pg (27-33) 10/06/24 13:11 MCHC 31.8 g/dL (30-55) 10/06/24 13:11 RDW 14.1 % (12.1-15.1) 10/06/24 13:11 Plt Count 508 10^3/cmm (157-399) H 10/06/24 13:11 MPV 9.5 fL (7.4-10.4) 10/06/24 13:11 Neut % (Auto) 58.2 % 10/06/24 13:11 Lymph % (Auto) 29.5 % 10/06/24 13:11 [place] % (Auto) 7.9 % 10/06/24 13:11 Eos % (Auto) 3.3 % 10/06/24 13:11 Baso % (Auto) 0.3 % 10/06/24 13:11 Neut # (Auto) 6.99 10^3/uL (1.8-7.7) 10/06/24 13:11 Lymph # (Auto) 3.6 10^3/uL (0.8-4.8) 10/06/24 13:11 [place] # (Auto) 1.0 10^3/uL (0.2-0.9) H 10/06/24 13:11 Eos # (Auto) 0.4 10^3/uL (0.0-0.8) 10/06/24 13:11 Baso # (Auto) 0.0 10^3/uL (0.0-0.1) 10/06/24 13:11 Nucleated RBC % (auto) 0 % 10/06/24 13:11 Nucleated RBCs # 0.0 /100WBC 10/06/24 13:11 Sodium 138 mmol/L (136-145) 10/06/24 13:11 Potassium 3.6 mmol/L (3.5-5.1) 10/06/24 13:11 Chloride 104 mmol/L (98-107) 10/06/24 13:11 Carbon Dioxide 21 mmol/L (22-29) L 10/06/24 13:11 Anion Gap 16.6 (5-19) 10/06/24 13:11 BUN 11 mg/dL (8-23) 10/06/24 13:11 Creatinine 0.8 mg/dL (0.5-0.9) 10/06/24 13:11 GFR Calculation 72.2 mL/min (90-130) L 10/06/24 13:11 Glucose 96 mg/dL (65-115) 10/06/24 13:11 Calculated Osmolality 285 mOsm/kg (285-295) 10/06/24 13:11 Calcium 8.7 mg/dL (8.5-10.5) 10/06/24 13:11 Total Bilirubin 0.2 mg/dL (0.15-1.2) 10/06/24 13:11 AST 33 U/L (0-32) H 10/06/24 13:11 ALT 34 U/L (0-33) H 10/06/24 13:11 Alkaline Phosphatase 95 U/L (35-105) 10/06/24 13:11 Total Protein 6.6 g/dL (6.6-8.7) 10/06/24 13:11 Albumin 3.5 g/dL (3.5-5.2) 10/06/24 13:11 Globulin 3.1 g/dL (1.3-4.6) 10/06/24 13:11 All radiology interpretation(s) finalized by discharge Discharge Plan Discharge Patient Disposition: Home Clinical Impression: Aspiration into airway, Incidental pulmonary nodule Condition: Stable Prescriptions: New doxycycline hyclate 100 mg capsule 100 mg PO BID 7 Days Qty: 14 0RF dexamethasone 6 mg tablet 6 mg PO DAILY 5 Days Qty: 5 0RF albuterol sulfate 90 mcg/actuation HFA aerosol inhaler 2 inh inhalation Q4H PRN (Reason: shortness of breath or wheezing) Qty: 6.7 0RF Rx Instructions: Please provide patient with a spacer No Action cholecalciferol (vitamin D3) 25 mcg (1,000 unit) capsule 25 mcg PO DAILY Qty: 90 0RF (DME) Walking Boot See Rx Instructions .Route .MEDSUPPLY Qty: 1 0RF Rx Instructions: As directed halobetasol propionate 0.05 % cream 1 applic topical BID PRN (Reason: eczema) Qty: 50 0RF epinephrine [EpiPen 2-Ezequiel] 0.3 mg/0.3 mL auto-injector 0.3 mg IM Q4H PRN (Reason: anaphylaxis) Qty: 2 0RF ondansetron 4 mg tablet,disintegrating 4 mg PO Q8H PRN (Reason: nausea and vomiting) Qty: 30 1RF cefuroxime axetil 250 mg tablet 250 mg PO BID PRN (Reason: for urinary infections) cetirizine [Zyrtec] 10 mg tablet 10 mg PO DAILY PRN (Reason: allergies) ketoconazole 2 % cream 1 applic TOPICAL BID PRN (Reason: Skin Irritation) cyanocobalamin (vitamin B-12) [Vitamin B-12] 1,000 mcg Tablet 1,000 mcg PO DAILY PRN (Reason: low b 12) ferrous sulfate 325 mg (65 mg iron) Tablet 325 mg PO DAILY PRN (Reason: low iron) Discharge Orders: Discharge ED (Routine); Ordered 10/06/24 Ordered By: Suzanne Olson Referrals: Mechelle Jj MD [Primary Care Provider] - Discharge Diet: Usual diet Discharge Activity: Increase activity as tolerated Patient Instructions: How to Use a Metered-Dose Inhaler and a Spacer (ED), Aspiration Precautions (ED), Opioid Safety, Pain Management Activity Restrictions/Additional Instructions: A pulmonary nodule was seen on imaging. This will need follow up imaging with your primary provider. Please schedule an appointment concerning this. Thank you for choosing [facility] for your healthcare needs today. Please realize this is an emergency room and that we are providing you with a medical screening exam and this may not be complete and all inclusive of all the testing and or work up that you may need to determine your ailment or severity of your illness. You have been screened and evaluated and felt safe for discharge. Health conditions do change or evolve sometimes and as such it is important that you follow up with your Primary Doctor to be re checked, 3-5 days is a general good time frame for follow up. You are always welcome to return to the ED for re assessment if your symptoms are worsening or you have new concerns Print Language: Central African Coding Level of Care Code ED Conference Director for Nya Cheng
[2024-10-06 13:29] LABS: Basophils % 0.3 %; Eosinophils # 0.4 10^3/uL (0.0-0.8); Eosinophils % 3.3 %; Hematocrit 41.8 % (36-47); Lymphocytes # 3.6 10^3/uL (0.8-4.8); Lymphocytes % 29.5 %; Mean Corpuscular HGB Conc 31.8 g/dL (30-55); Mean Corpuscular Hemoglobin 27.8 pg (27-33); Mean Corpuscular Volume 87.3 fl (85-98); Mean Platelet Volume 9.5 fL (7.4-10.4); Monocytes % 7.9 %; Neutrophils # 6.99 10^3/uL (1.8-7.7); Neutrophils % 58.2 %; Nucleated Red Blood Cells % 0 %; Platelet Count 508 10^3/cmm (157-399); Red Blood Count 4.79 10^6/uL (3.85-5.65); Red Cell Distribution Width 14.1 % (12.1-15.1); White Blood Count 12.03 10^3/uL (3.29-11.43)
[2024-10-06 13:30] VITALS: PULSE 89; RESP 16; O2SAT 97
[2024-10-06 13:57] LABS: Alanine Aminotransferase 34 U/L (0-33); Albumin Level 3.5 g/dL (3.5-5.2); Alkaline Phosphatase 95 U/L (35-105); Anion Gap 16.6 (5-19); Aspartate Amino Transferase 33 U/L (0-32); Blood Urea Nitrogen 11 mg/dL (8-23); Calcium 8.7 mg/dL (8.5-10.5); Carbon Dioxide 21 mmol/L (22-29); Chloride 104 mmol/L (98-107); Globulin 3.1 g/dL (1.3-4.6); Glomerular Filtration Rate 72.2 mL/min (90-130); Glucose 96 mg/dL (65-115); Osmolality Calculated 285 mOsm/kg (285-295); Potassium 3.6 mmol/L (3.5-5.1); Sodium 138 mmol/L (136-145); Total Bilirubin 0.2 mg/dL (0.15-1.2); Total Protein 6.6 g/dL (6.6-8.7)
[2024-10-06] MEDS: dexamethasone 4 mg Tablet 10 MG PO (15:01)
[2024-10-06] MEDS: doxycycline 100 mg Tablet PO (15:02)
[2024-10-06 15:20] VITALS: BP 180/98; PULSE 81; O2SAT 95
== END 2024-10-06 15:20 | disposition home or self-care (01) ==
PROVIDERS: Emergency Provider Emergency Medicine; PCP Family Medicine
DX: T17.928A Food in respiratory tract, part unspecified causing other injury, initial encounter (principal); R91.1 Solitary pulmonary nodule; Z87.891 Personal history of nicotine dependence; E78.5 Hyperlipidemia, unspecified; W44.F3XA Food entering into or through a natural orifice, initial encounter
CPT/HCPCS: 36415; 71250; 80053; 85025; 94640; 99284; J8540; J9999

== ENCOUNTER → 2024-12-30 10:37 | Outpatient (BNVA) | payer MEDICARE, OTHER, SELFPAY | PROVIDERS: PCP Family Medicine; Visit Provider Family Medicine | DX: E78.2 Mixed hyperlipidemia (principal); E53.8 Deficiency of other specified B group vitamins; E55.9 Vitamin D deficiency, unspecified; M06.9 Rheumatoid arthritis, unspecified; Z98.84 Bariatric surgery status | CPT/HCPCS: 80061; 82306; 82607; 83036; 83540; 85025 ==

== ENCOUNTER → 2025-01-14 13:52 | Outpatient (BNVA) | payer MEDICARE, OTHER, SELFPAY | PROVIDERS: PCP Family Medicine; Visit Provider Family Medicine | DX: E11.9 Type 2 diabetes mellitus without complications (principal) | CPT/HCPCS: 82043 ==

== ENCOUNTER 2025-03-10 19:07 | Emergency (ER) | payer MEDICARE, OTHER, SELFPAY ==
--- NOTE | 2025-03-10 19:09 | ED_ITS ---
HPI - Eye Problem General: Chief complaint: Eye Problems Stated complaint: Rt Eye Sti\Swelling Time Seen by Provider: 03/10/25 19:09 History of Present Illness: 64-year-old female was seen in the [facility] e with [place] was started on antibiotic trips advised to use warm compress should return later in the same day concerned about the swelling. She is again here concerned about swelling she has not had any fever sweats or chills no change in vision. Associated symptoms: Denies fever(s) Related Data Home Medications ?Medication ?Instructions ?Recorded ?Confirmed cefuroxime axetil 250 mg tablet 250 mg PO BID PRN for urinary 10/06/24 03/08/25 infections cyanocobalamin (vitamin B-12) 1,000 mcg PO DAILY PRN l ow b 12 10/06/24 03/08/25 1,000 mcg tablet (Vitamin B-12) Held on 12/30/24. Instructions: Doctor's Order ferrous sulfate 325 mg (65 mg 325 mg PO DAILY PRN low iron 10/06/24 03/08/25 iron) tablet Held on 12/30/24. Instructions: Guidelines ketoconazole 2 % topical cream 1 applic topical BID WV N Skin 10/06/24 03/08/25 Irritation Previous Rx's ?Medication ?Instructions ?Recorded cholecalciferol (vitamin D3) 25 25 mcg PO DAILY #90 ca ps 04/02/24 mcg (1,000 unit) capsule Walking Boot #1 ea 07/21/24 halobetasol propionate 0.05 % 1 applic topical BID PRN eczema 08/02/24 topical cream #50 grams epinephrine 0.3 mg/0.3 mL 0.3 mg (0.3 mL) IM Q4H PRN 0 09/30/24 injection, auto-injector (EpiPen anaphylaxis #2 ea 2-Ezequiel) ondansetron 4 mg disintegrating 4 mg PO Q8H PRN nausea and 09/30/24 tablet vomiting #30 tabs albuterol sulfate 90 mcg/actuation 2 inh inhalation Q4 H PRN shortness 10/06/24 aerosol inhaler of breath or wheezing #6.7 g william [id number] 3.5 1 drp ophthalmic (eye) Q8H #5 mL 03/08/25 mg/mL-10,000 unit/mL-0.1% eye drops (Maxitrol) cefdinir 300 mg capsule 300 mg PO BID 10 days #20 ca ps 03/10/25 clindamycin HCl 300 mg capsule 300 mg PO QID 7 days #2 8 caps 03/10/25 (Cleocin HCl) sulfamethoxazole 800 1 tab PO BID 7 days #14 tabs 03/10/25 mg-trimethoprim 160 mg tablet (Bactrim DS) Allergies Allergy/AdvReac Type Severity Reaction Status Date / Time amoxicillin Allergy ALGY-Rash Verified 03/08/25 10:42 ciprofloxacin (From Cipro) Allergy RASH Verified 03/08/25 10:42 bee sting Allergy anaphylaxis Uncoded 03/08/25 10:42 Review of Systems Const: Denies: fever(s) or chills Eyes: Reports: eye discomfort; Denies: change in vision PFSH ED PFSH: Medical History Type 2 diabetes mellitus with hyperglycemia, without long-term current use of insulin dxed 12.30.24 Hiatal hernia with GERD seen on CT Bariatric surgery status Incidental pulmonary nodule 5mm RUL nodule on CT 10.06.24--will f/u 6 months Fasting hyperglycemia Plantar fasciitis, right Bone spur of toe of right foot White coat syndrome without hypertension Cholelithiasis saw Dr. 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; s/p lumpectomy w/ clear margins Hx of compression fracture of spine Psoriasis Generalized osteoarthritis Morbid obesity Rheumatoid arthritis Elevated blood pressure reading without diagnosis of hypertension Hyperlipidemia Recurrent UTI (urinary tract infection) Vitamin D deficiency disease Vitamin B12 deficiency Surgical History History of phacoemulsification of cataract of both eyes with intraocular lens implantation History of lumpectomy of right breast cancer Hx of melanoma excision R arm History of decompression of ulnar nerve left History of bilateral carpal tunnel release History of gastric bypass 2000 History of hysterectomy Hyst w/ BSO done for bleeding and fibroids, no cancer; had incisional hernia repaired at this time History of section X 2 Family History Grandfather Cancer lung CAD (coronary artery disease) Dementia Father Cancer lung Lung disease Lung cancer Grandmother CAD (coronary artery disease) Sister Diabetes Stroke CAD (coronary artery disease) Family/Other Lung disease Uncles with black lung Other Anesthesia complication Hyperlipidemia Hypertension Denies family history of Clotting disorder Psychiatric illness Chronic kidney disease (CKD) Suicide Bleeding disorder Social History Smoking and tobacco/nicotine status: never used tobacco/nicotine Quit status (tobacco/nicotine): has quit using Year quit tobacco: 2002 Former quit date comment: smoked for 20 years Alcohol intake: former Substance/Drug Use: never Household members: significant other Marital status: / Marital status details: engaged Number of children: 2 Number of grandchildren: 12 Highest education level completed: Bachelor's Degree Current occupational status: retired 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 Sclera conjunctiva clear visual acuity normal Neuro: SENSORIUM/ORIENTATION: Yes oriented to person, Yes oriented to place and Yes oriented to time Skin: COMMON NORMALS: no rashes or lesions noted GENERAL SKIN EXAM: no rashes or lesions noted Course Vital Signs: Vital signs: Vital Signs Temperature 98.2 F 03/10/25 19:11 Pulse Rate 83 03/10/25 20:43 Respiratory Rate 18 03/10/25 20:43 Blood Pressure 145/90 03/10/25 20:43 Pulse Oximetry 94 03/10/25 20:43 Oxygen Delivery Me thod Room Air 03/10/25 20:25 MDM - Eye Problem Medical Decision Making I think he is probably getting some swelling because of capillary leakage from the heat compress she has been applying to the eye. She is very worried about this. Will discharge her home with that oral antibiotics discussed with her the oral antibiotics are very aggressive choice at this point she is very concerned this is her third visit she had return to the clinic yesterday after her initial visit worried about it. She was asking if lab work was needed advised her at this point no think lab work would add anything to her decision making process. Medical Records I reviewed the patient's medical records. No radiology studies performed this visit Discharge Plan Discharge Patient Disposition: Home Clinical Impression: Hordeolum externum of right lower eyelid, Preseptal cellulitis of right eye Condition: Stable Prescriptions: New clindamycin HCl [Cleocin HCl] 300 mg capsule 300 mg PO QID 7 Days Qty: 28 0RF cefdinir 300 mg capsule 300 mg PO BID 10 Days Qty: 20 0RF No Action cholecalciferol (vitamin D3) 25 mcg (1,000 unit) capsule 25 mcg PO DAILY Qty: 90 0RF (DME) Walking Boot See Rx Instructions .Route .MEDSUPPLY Qty: 1 0RF Rx Instructions: As directed halobetasol propionate 0.05 % cream 1 applic topical BID PRN (Reason: eczema) Qty: 50 0RF neomycin-polymyxin B-dexameth [Maxitrol] 3.5mg/mL-10,000 unit/mL-0.1 % drops,suspension 1 drp ophthalmic (eye) Q8H Qty: 5 0RF sulfamethoxazole-trimethoprim [Bactrim DS] 800-160 mg tablet 1 tab PO BID 7 Days Qty: 14 0RF epinephrine [EpiPen 2-Ezequiel] 0.3 mg/0.3 mL auto-injector 0.3 mg IM Q4H PRN (Reason: anaphylaxis) Qty: 2 0RF ondansetron 4 mg tablet,disintegrating 4 mg PO Q8H PRN (Reason: nausea and vomiting) Qty: 30 1RF cefuroxime axetil 250 mg tablet 250 mg PO BID PRN (Reason: for urinary infections) ketoconazole 2 % cream 1 applic TOPICAL BID PRN (Reason: Skin Irritation) cyanocobalamin (vitamin B-12) [Vitamin B-12] 1,000 mcg Tablet 1,000 mcg PO DAILY PRN (Reason: low b 12) ferrous sulfate 325 mg (65 mg iron) Tablet 325 mg PO DAILY PRN (Reason: low iron) albuterol sulfate 90 mcg/actuation HFA aerosol inhaler 2 inh inhalation Q4H PRN (Reason: shortness of breath or wheezing) Qty: 6.7 0RF Rx Instructions: Please provide patient with a spacer Discharge Orders: Discharge ED (Routine); Ordered 03/10/25 Ordered By: Kel Becerril Referrals: Mechelle Jj MD [Primary Care Provider, Family Practice] Discharge Diet: Usual diet Discharge Activity: Increase activity as tolerated Patient Instructions: Periorbital Cellulitis (ED), Opioid Safety, Pain Management, Patient Portal & Shannon Instructions Activity Restrictions/Additional Instructions: [facility] you [facility] your healthcare needs today. It is very important that you follow up as instructed or that [facility] should you have concerns or if your condition changes or worsens in any way. Emergency department visits are focused on emergent conditions, in some cases you may require further evaluation on an outpatient basis. You were seen in the emergency room with concerns about your heart Irvin. There is some mild swelling of the lower eyelid minimal think some of this is just inflammation from the lower eyelid causing the swelling. Will cover you with oral antibiotics follow-up with your primary care doctor or staff trainer. (Please note that included in your discharge packet is information concerning opioid safety and pain management. This information is given to all patients were discharged from the ER regardless of their discharge diagnosis or the medicines they usually take or are prescribed.) Print Language: Macedonian Coding Level of Care Code ED Television Equipment Operator for Nya Cheng
[2025-03-10 19:11] VITALS: BP 170/103; PULSE 96; RESP 22; TEMP 36.8; O2SAT 95; BMI 46.3
--- OUTSIDE RECORDS SUMMARY | 2025-03-10 19:17 | XMS_ITS | Patient Health Record ---
Author Organization [facility] Address [address] [place] [address] Support Name Relationship Address Phone Betsy Marx Guarantor Unknown Unavailable Reason For Referral No Information Plan Of Treatment No Information
--- OUTSIDE RECORDS SUMMARY | 2025-03-10 19:17 | XMS_ITS | Clinical Summary ---
Author Organization [facility] Address [address] 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 02/17/2023 Active IRON ORAL Take by mouth 1 time daily as needed. 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 Gender Identity Not on file Sexual Orientation Not on file Last Filed Vital Signs Vital Sign Reading Time Taken Comments Blood Pressure 157/106 05/15/2023 1:50 PM SEO PROFESSIONAL Pulse 99 05/15/2023 1:50 PM SEO PROFESSIONAL Temperature 36.7 C (98.1 F) 05/15/2023 1:50 PM SEO PROFESSIONAL Respiratory Rate - - Oxygen Saturation - - Inhaled Oxygen Concentration - - Weight 124.3 kg (274 lb) 05/15/2023 1:50 PM SEO PROFESSIONAL Height 162.6 cm (5' 4 ) 05/15/2023 1:50 PM SEO PROFESSIONAL Body Mass Index 47.03 05/15/2023 1:50 PM SEO PROFESSIONAL Plan of Treatment Health Maintenance Due Date Last Done Comments DTAP/TDAP/TD VACCINES (1 - Tdap) 1979 HPV/Cotest (21-29) 1981 CERVICAL CANCER SCREENING 1990 HPV/Cotest (30-65) 1990 PAP SMEAR 1990 BREAST CANCER SCREENING 2000 COLORECTAL SCREENING 2005 Colorectal Cancer Screening 2005 FIT-DNA Q 3 years 2005 FIT/FOBT Q 1 year 2005 Flex Sig/CT Colonography Q 5 years 2005 ZOSTER VACCINE (1 of 2) 2010 INFLUENZA VACCINE (#1) 2025 06/09/2022 RSV VACCINE (60+ or ) (1 - 1-dose 75+ series) 2035 Insurance [employer] MEDICARE HMO
--- OUTSIDE RECORDS SUMMARY | 2025-03-10 19:17 | XMS_ITS | Clinical Summary ---
Author Organization [facility] Address [address] [place] [address] Care Team Providers Care Grove Superintendent Name Role Phone Unavailable Primary Care Provider Unavailabl e Allergies Active Allergy Reactions Criticality Noted Date Comments Ciprofloxacin Rash Low 12/12/2016 Medications gabapentin (NEURONTIN) 100 mg capsule Take 1 pill the first day. Take 1 pill twice the second day. Take 1 pill 3 times daily every day after.. 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 Gender Identity Not on file Sexual Orientation Not on file Last Filed Vital Signs Vital Sign Reading Time Taken Comments Blood Pressure 128/84 12/12/2016 1:27 PM CDT Pulse 109 12/12/2016 1:27 PM CDT Temperature - - Respiratory Rate - - Oxygen Saturation - - Inhaled Oxygen Concentration - - Weight 117 kg (258 lb) 12/12/2016 1:27 PM CDT Height 162.6 cm (5' 4 ) 12/12/2016 1:27 PM CDT Body Mass Index 44.29 12/12/2016 1:27 PM CDT Plan of Treatment Health Maintenance Due Date [...] of 2) 2010 INFLUENZA VACCINE (#1) 2025 RSV VACCINE (60+ or ) (1 - 1-dose 75+ series) 2035 Insurance [facility] CHOICE PLUS
--- OUTSIDE RECORDS SUMMARY | 2025-03-10 19:17 | XMS_ITS | Encounter Summary ---
Author Organization [facility] Address [address] [place] [address] Care Team Providers Care Sergeant Of Officers Name Role Phone Unavailable Primary Care Provider Unavailabl e Encounter Details Date Type Department Care Team (Late st Contact Info) Description 04/20/2007 Outpatient Historical [facility]3] Dermatology- 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
[2025-03-10 20:25] VITALS: BP 176/113; O2SAT 94
[2025-03-10 20:43] VITALS: BP 145/90; PULSE 83; RESP 18; O2SAT 94
== END 2025-03-10 20:44 | disposition home or self-care (01) ==
PROVIDERS: Emergency Provider Family Medicine; PCP Family Medicine
DX: H00.012 Hordeolum externum right lower eyelid (principal); L03.213 Periorbital cellulitis; Z87.891 Personal history of nicotine dependence; E78.5 Hyperlipidemia, unspecified; E11.9 Type 2 diabetes mellitus without complications
CPT/HCPCS: 99283

== ENCOUNTER 2025-03-14 06:44 | Outpatient (CLI) | payer MEDICARE, OTHER, SELFPAY ==
--- NOTE | 2025-03-14 06:30 | CT_ITS ---
WS: [id number] CT chest wo con [id number] HISTORY: f/u 3.30.25 RUL nodule TECHNIQUE: Axial imaging performed through the thorax. Coronal and sagittal reformats are submitted. All CT scans at [facility] use at least one of these dose optimization techniques: automated exposure control; mA and/or kV adjustment per patient size (includes targeted exams where dose is matched to clinical indication); or iterative reconstruction. CONTRAST: None DLP: 633.31 mGy.cm COMPARISON: 10/06/2024, 01/12/2023 Lungs and central airway: Mild pulmonary hyperexpansion. Reidentified is the triangular-shaped 5 mm anterior RIGHT upper lobe pulmonary nodule which is stable since 01/12/2023. Linear atelectasis LEFT upper lobe. No pneumonia. No new or increasing size of any pulmonary nodule. Pleura: Normal. No pleural effusion. Heart and pericardium: Normal size heart with no pericardial effusion. Mediastinum and godwin: No mediastinum or hilar adenopathy. Vessels: Very minimal atherosclerosis aorta. Normal size pulmonary artery. Scattered coronary artery calcifications. Chest wall and lower neck: No soft tissue masses. Upper abdomen: Status post gastric bypass surgery. No adrenal mass. Osseous structures: Increase in thoracic kyphosis. Degenerative thoracic spondylosis. CT/CT chest wo con [id number] IMPRESSION: 1. Stable 5 mm anterior RIGHT upper lobe pulmonary nodule since 01/12/2023. Cons ider low-dose lung screening CT evaluation. 2. Mild pulmonary hyperexpansion. 3. Mild atherosclerosis aorta and coronary arteries.
== END 2025-03-14 06:45 | disposition home or self-care (01) ==
LOC: RAD 06:45
PROVIDERS: PCP Family Medicine; Visit Provider Family Medicine
DX: R91.1 Solitary pulmonary nodule (principal); I25.10 Atherosclerotic heart disease of native coronary artery without angina pectoris; M40.204 Unspecified kyphosis, thoracic region; M47.814 Spondylosis without myelopathy or radiculopathy, thoracic region; J98.4 Other disorders of lung
CPT/HCPCS: 71250

== ENCOUNTER → 2025-03-20 15:39 | Outpatient (BNVA) | payer MEDICARE, OTHER, SELFPAY | PROVIDERS: PCP Family Medicine; Visit Provider Internal Medicine Cardiovascular Disease | DX: I11.9 Hypertensive heart disease without heart failure (principal); Z86.000 Personal history of in-situ neoplasm of breast; M06.9 Rheumatoid arthritis, unspecified; Z85.820 Personal history of malignant melanoma of skin; Z87.891 Personal history of nicotine dependence | CPT/HCPCS: 99214 ==

== ENCOUNTER → 2025-04-17 08:29 | Outpatient (BNVA) | payer MEDICARE, OTHER, SELFPAY | PROVIDERS: PCP Family Medicine; Visit Provider Family Medicine | DX: Z11.59 Encounter for screening for other viral diseases (principal); Z11.4 Encounter for screening for human immunodeficiency virus [HIV]; E11.65 Type 2 diabetes mellitus with hyperglycemia; E66.01 Morbid (severe) obesity due to excess calories; E78.2 Mixed hyperlipidemia; R74.8 Abnormal levels of other serum enzymes; N39.0 Urinary tract infection, site not specified | CPT/HCPCS: 80053; 80061; 82306; 82607; 83036; 86803; 87086; 87806 ==

== ENCOUNTER → 2025-05-27 08:19 | Outpatient (BNVA) | payer MEDICARE, OTHER, SELFPAY | PROVIDERS: PCP Family Medicine; Visit Provider Nurse Practitioner | DX: J02.8 Acute pharyngitis due to other specified organisms (principal); B97.89 Other viral agents as the cause of diseases classified elsewhere; R53.83 Other fatigue | CPT/HCPCS: 87071; 87400; 87426; 87880 ==

== ENCOUNTER 2025-06-16 07:42 | Outpatient (CLI) | payer MEDICARE, OTHER, SELFPAY ==
--- NOTE | 2025-06-16 08:00 | MM_ITS ---
WS: [id number] DIAGNOSTIC BILATERAL DIGITAL BREAST TOMOSYNTHESIS MAMMOGRAPHY WITH CAD HISTORY: hx of breast ca, RIGHT breast lumpectomy. COMPARISON: 06/13/2024, 06/12/2023, TECHNIQUE: Bilateral craniocaudad, mediolateral oblique, and mediolateral views are submitted with tomosynthesis and SM. Computer aided detection utilized. Breast composition: There are scattered areas of fibroglandular density. No suspicious grouping of calcification. No mass or distortion. Tiny 5 mm area of increased density and slight spiculation in the anterior breast just posterior to the nipple. Not definitely visualized on the lateral projection. Additional imaging recommended. MM/MM diag BI tomosynthesis [id number] IMPRESSION: BI-RADS: 0 - Incomplete: Need additional imaging evaluation. FOLLOW UP: Need Additional Imaging LEFT breast: Spot compression views (CC and MLO). True ML. Ultrasound to follow if abnormality persists.
== END 2025-06-16 07:43 | disposition home or self-care (01) ==
LOC: RAD 07:42
PROVIDERS: PCP Family Medicine; Visit Provider Family Medicine
DX: Z85.3 Personal history of malignant neoplasm of breast (principal); R92.8 Other abnormal and inconclusive findings on diagnostic imaging of breast; Z90.11 Acquired absence of right breast and nipple; R92.323 Mammographic fibroglandular density, bilateral breasts
CPT/HCPCS: 77062; G0279

== ENCOUNTER 2025-06-17 07:33 | Outpatient (CLI) | payer MEDICARE, OTHER, SELFPAY ==
--- NOTE | 2025-06-17 08:00 | MM_ITS ---
WS: [id number] ADDITIONAL VIEWS LEFT MAMMOGRAM WITH DIGITAL BREAST TOMOSYNTHESIS. LEFT breast ultrasound, limited HISTORY: abnormal mammo COMPARISON: 06/16/2025, 06/13/2024 Spot compression views LEFT breast in CC, MLO projections and true ML submitted with digital breast tomosynthesis and SM. Breast composition: There are scattered areas of fibroglandular density. High density spiculated focus in the anterior LEFT breast nearly completely resolves with additional imaging. Minimal residual soft tissue appears [id number]. Ultrasound will be performed. No distortion. LEFT breast ultrasound, limited. No abnormality is noted within the anterior LEFT breast 11, 12 and 1:00. MM/MM diag LT tomosynthesis [id number] IMPRESSION: BI-RADS: 2 - Benign. FOLLOW UP: 1 Year Follow-up No persistent abnormality noted within the anterior LEFT breast on additional i maging.
--- NOTE | 2025-06-17 08:30 | US_ITS ---
WS: [id number] ADDITIONAL VIEWS LEFT MAMMOGRAM WITH DIGITAL BREAST TOMOSYNTHESIS. LEFT breast ultrasound, limited HISTORY: abnormal mammo COMPARISON: 06/16/2025, 06/13/2024 Spot compression views LEFT breast in CC, MLO projections and true ML submitted with digital breast tomosynthesis and SM. Breast composition: There are scattered areas of fibroglandular density. High density spiculated focus in the anterior LEFT breast nearly completely resolves with additional imaging. Minimal residual soft tissue appears [id number]. Ultrasound will be performed. No distortion. LEFT breast ultrasound, limited. No abnormality is noted within the anterior LEFT breast 11, 12 and 1:00. US/US breast LT limited* [id number] IMPRESSION: BI-RADS: 2 - Benign. FOLLOW UP: 1 Year Follow-up No persistent abnormality noted within the anterior LEFT breast on additional i maging.
== END 2025-06-17 07:34 | disposition home or self-care (01) ==
PROVIDERS: PCP Family Medicine; Visit Provider Family Medicine
DX: N63.20 Unspecified lump in the left breast, unspecified quadrant (principal); R92.322 Mammographic fibroglandular density, left breast
CPT/HCPCS: 76642; 77061; 77063